=== PATIENT | female | born 1975 | race Caucasian/White ===

== ENCOUNTER 2019-11-13 07:37 | Outpatient (CLI) | payer BC, SELFPAY ==
--- NOTE | ~2019-11-13 | MM_ITS ---
EXAMINATION: MM screening [facility] BI w he HISTORY: Screening TECHNIQUE: Craniocaudal and mediolateral oblique 3-D tomosynthesis images were obtained and synthetic 2-D images were generated. CAD analysis was submitted and interpreted. COMPARISON: Comparison to multiple prior studies sequentially, with oldest reviewed study dated 08/25. BREAST PARENCHYMAL COMPOSITION: There are scattered areas of fibroglandular density. FINDINGS: There is no evidence of suspicious mass, calcification, or architectural distortion to sugg est malignancy in either breast. There has been no suspicious interval change. IMPRESSION: 1. No mammographic evidence of malignancy. 2. Recommend routine screening mammography in one year. BI-RADS Category 1: Negative Reviewed, dictated and finalized at location A.
== END 2019-11-13 07:38 | disposition home or self-care (01) ==
LOC: ANHIMG 07:39
PROVIDERS: PCP Internal Medicine; Visit Provider Nurse Practitioner
DX: Z12.31 Encounter for screening mammogram for malignant neoplasm of breast (principal)
CPT/HCPCS: 77063; 77067

== ENCOUNTER 2020-11-30 07:41 | Outpatient (CLI) | payer BC, SELFPAY ==
--- NOTE | ~2020-11-30 | MM_ITS ---
EXAMINATION: MM screening [facility] BI w he HISTORY: Screening mammogram TECHNIQUE: Craniocaudal and mediolateral oblique 3-D tomosynthesis images were obtained and synthetic 2-D images were generated. CAD analysis was submitted and interpreted. COMPARISON: 11/13/2019, 10/21/2018, 09/24/2017 BREAST PARENCHYMAL COMPOSITION: There are scattered areas of fibroglandular density. FINDINGS: There is no evidence of suspicious mass, calcification, or architectural distortion to sugg est malignancy in either breast. There has been no suspicious interval change. IMPRESSION: 1. No mammographic evidence of malignancy. 2. Recommend routine screening mammography in one year. BI-RADS Category 1: Negative Reviewed, dictated and finalized at location A.
== END 2020-11-30 07:42 | disposition home or self-care (01) ==
PROVIDERS: Visit Provider Nurse Practitioner
DX: Z12.31 Encounter for screening mammogram for malignant neoplasm of breast (principal)
CPT/HCPCS: 77063; 77067

== ENCOUNTER 2021-02-04 00:32 | Day surgery (SDC) | payer BC, SELFPAY ==
[2021-01-13 13:13] VITALS: BMI 22.0
[2021-02-04 09:55] VITALS: BP 107/64; PULSE 79; RESP 18; TEMP 36.6; O2SAT 100; BMI 21.7
[2021-02-04] MEDS: LACTATED RINGERS 1,000 ML 150 ML IV CONT (10:05)
--- NOTE | 2021-02-04 10:07 | P.PNAN_ITS ---
Anes - Initial Pre Proc Eval Procedure: Operation Date: 02/04/21 10:45 Proposed Procedures p Screening Colonoscopy - Mandeep Tong MD Date/Time: 02/04/21 10:07 Surgeon: Mandeep Tong MD Pre Op Diagnosis: neoplasm screening Patient Data Age: 45 Gender: F Height: 1.65 m Weight: 59.4 kg Last Vital Signs Temp 36.6 C 02/04/21 09:55 Pulse 79 02/04/21 09:55 Resp 18 02/04/21 09:55 BP 107/64 02/04/21 09:55 Pulse Ox 100 02/04/21 09:55 Allergies Allergy/AdvReac Type Severity Reaction Status Date / Time No Known Allergies Allergy Verified 02/04/21 09:52 Home Medications Medication Instructions Recorded Confirmed Type ergocalciferol (vitamin D2) 1 unit PO DAILY 01/13/21 01/13/21 History lactobacillus combination no.8 1 cell PO DAILY 01/13/21 01/13/21 History [Adult Probiotic] Patient hx anesthesia problems: post op nausea/vomiting Family hx anesthesia problems: none Results Review: All pre-operative results and documents have been reviewed as part of the pre-operative evaluation. [facility] Surgical History Surgical History (Updated 02/04/21 @ 10:08 by Alexis Smith MD) Hx of tonsillectomy S/P anal fissurectomy Social History Social History Smoking status: Never smoker Alcohol intake: current Alcohol use details: a few Substance use: never Substance use type: does not use Living arrangements: with family Spiritual care concerns: No Anes - Eval Final PreProcedure Day of Procedure 02/04/21 10:07 Patient weight: normal Heart: regular rate and rhythm Lungs: clear to auscultation Airway: Mallampati scale class 1 Neurological: alert and oriented Last oral intake: >/= 8 hours ASA classification: I Emergent: no Anesthetic plan: proceed Anesthesia type and monitoring: general GIVS and standard monitoring Results Review: All pre-operative results and documents have been reviewed as part of the pre-operative evaluation. Informed Consent: The patient's anesthetic plan and its attendant risks and benefits were discussed with the patient/family/POA. Questions were solicited and answers provided to the satisfaction of the patient/family/POA.
--- NOTE | 2021-02-04 10:26 | PM.HPGS ---
History of Present Illness History of Present Illness Consent: Risks, benefits, and alternatives have been discussed and questions answered. Patient agrees to proceed with procedure. Chief complaint: neoplasm screening Narrative: Jemima Walter is a 45 year old female here for first screening colonoscopy Review of Systems Constitutional: Constitutional: Denies headache(s) and Denies weakness Eyes: Eyes: Denies blurry vision ENT: Reports Normal hearing present, Denies headache(s) and Denies neck pain Cardiovascular: Cardiovascular: Denies chest pain and Denies dyspnea Respiratory: Respiratory: Denies dyspnea Gastrointestinal: Gastrointestinal: Reports no additional gastrointestinal complaints Genitourinary: Genitourinary: Denies dysuria Musculoskeletal: Musculoskeletal: Denies neck pain Integumentary/Breasts: Skin/Breast: Denies dry skin Neurologic: Reports Normal hearing present, Denies headache(s) and Denies weakness Psychiatric: Psychiatric: Denies anxiety Endocrine: Endocrine: Denies change in body appearance Hematologic/Lymphatic: Hematologic/Lymphatic: Denies easy bleeding Allergic/Immunologic: Allergic/Immunologic: Denies urticaria [facility] Past Medical History Medical History (Updated 02/04/21 @ 10:26 by Mandeep Tong MD) Colon cancer screening Surgical History Surgical History (Updated 02/04/21 @ 10:08 by Alexis Smith MD) Hx of tonsillectomy S/P anal fissurectomy Social History Social History Smoking status: Never smoker Alcohol intake: current Alcohol use details: a few Substance use: never Substance use type: does not use Living arrangements: with family Spiritual care concerns: No Meds Home Medications and Allergies Home Medications Medication Instructions Recorded Confirmed Type ergocalciferol (vitamin D2) 1 unit PO DAILY 01/13/21 01/13/21 History lactobacillus combination no.8 1 cell PO DAILY 01/13/21 01/13/21 History [Adult Probiotic] Allergies Allergy/AdvReac Type Severity Reaction Status Date / Time No Known Allergies Allergy Verified 02/04/21 09:52 Vital Signs Vital Signs - 24 hr 02/04/21 09:55 Temperature 98 F Pulse Rate 79 Respiratory Rate 18 Blood Pressure 107/64 Pulse Oximetry 100 Exam Const: General: comfortable and no acute distress HENMT: General nose exam: Normal nares present Eyes: General: appearance normal, both eyes and all related structures Neck: Neck: no JVD Resp: Auscultation: clear to auscultation bilaterally Cardio: Rate: regular rate Rhythm: regular rhythm GI: Inspection: non-distended GI Palp: Yes Soft to palpation Skin: General skin exam: normal color Neuro: General: gait normal Speech: normal speech Extrem: General: normal to inspection Psych: Mental Status: mental status grossly normal Assessment and Plan Assessment and plan (1) Colon cancer screening: Code(s): Z12.11 - Encounter for screening for malignant neoplasm of colon Status: Acute Assessment and Plan: colonoscopy
[2021-02-04 10:51] VITALS: BP 93/56; PULSE 78; RESP 17; O2SAT 100
[2021-02-04 11:01] VITALS: BP 103/65; PULSE 80; RESP 24; O2SAT 100
[2021-02-04 11:11] VITALS: BP 127/73; PULSE 87; RESP 34; O2SAT 100
== END 2021-02-04 11:22 | disposition home or self-care (01) ==
PROVIDERS: Visit Provider Internal Medicine Gastroenterology
PROC: 0DJD8ZZ Inspection of Lower Intestinal Tract, Via Natural or Artificial Opening Endoscopic (ICD-10-PCS; CPT 45378; principal; 2021-02-04 10:45)
DX: Z12.11 Encounter for screening for malignant neoplasm of colon (principal)
CPT/HCPCS: 45378; J2001; J2704; J7120

== ENCOUNTER 2021-04-14 11:26 | Emergency (ER) | payer BC, SELFPAY ==
--- NOTE | 2021-04-14 11:30 | ED.URI ---
HPI - URI/Sore Throat General Stated Complaint: Sore throat, ear pain. Time Seen by Provider: 04/14/21 11:30 Source: patient and RN notes reviewed History of Present Illness HPI Narrative: Patient is a 45-year-old female presents the urgent care with complaints of bilateral ear pain and sore throat. Patient states that her symptoms started last night. States that she has been taking Aleve with her last dose being last night. Reports of subjective fever as well as chills and sweats. Patient has had the COVID-vaccine and denies of any recent exposures. No other complaints. No acute distress noted. Patient read the plan of care. Some parts of this dictation were generated by voice recognition software and may contain typographical and/or grammatical inaccuracies. Related Data Home Medications Medication Instructions Recorded Confirmed ergocalciferol (vitamin D2) 1 unit PO DAILY 01/13/21 01/13/21 lactobacillus combination no.8 1 cell PO DAILY 01/13/21 01/13/21 [Adult Probiotic] Allergies Allergy/AdvReac Type Severity Reaction Status Date / Time No Known Allergies Allergy Verified 02/04/21 09:52 Review of Systems Review of Systems: CONSTITUTIONAL: Reports a fever EYES: Denies visual changes, redness, or discharge. ENT: Reports of sore throat and bilateral otalgia CARDIOVASCULAR: Denies chest pain, palpitations, or edema. RESPIRATORY: Denies cough or dyspnea. GASTROINTESTINAL: Denies abdominal pain, nausea, vomiting, or diarrhea. GENITOURINARY: Denies dysuria or hematuria. SKIN: Denies rash or itching. MUSCULOSKELETAL: Denies back pain, joint pain, or myalgia. NEUROLOGIC: Denies headache, numbness, or weakness. All other systems reviewed are negative, except as documented in HPI. [facility] Past Medical History Medical History (Updated 04/14/21 @ 12:03 by MELY Lim) Colon cancer screening Surgical History Surgical History (Updated 02/04/21 @ 10:08 by Alexis Smith MD) Hx of tonsillectomy S/P anal fissurectomy Social History Social History Smoking status: Never smoker Alcohol intake: current Alcohol use details: a few Substance use: never Substance use type: does not use Spiritual care concerns: No Comments At the time of my signature, I reviewed and agree with the nursing past medical, surgical, social, and family history. There is no relevant family history pertinent to the patient complaint. Exam Narrative: GENERAL: This is a well-nourished, well-developed patient, in no apparent distress. HEAD: normocephalic, atraumatic. EYES: PERRL. Sclera clear/white. Vision is grossly intact. EARS: External ears normal, auditory canals clear and without drainage, mild fluid noted by bilateral TMs without otitis. TMs normal without perforation. Hearing grossly intact. NOSE: External nose normal with no obvious nasal discharge, nares without redness, no rhinorrhea. THROAT: Mucous membranes moist. Mild erythema noted to posterior oropharynx with mild postnasal drainage exudate or ulceration NECK: Neck supple, non-tender without lymphadenopathy CARDIOVASCULAR: Regular rate and rhythm without murmurs, gallops, or rubs. RESPIRATORY: Clear to auscultation. Breath sounds equal bilaterally. No wheezes, rales, or rhonchi. SKIN: warm, intact with no suspicious lesions or rash, good texture and turgor. NEURO: awake, alert, and oriented to person, place and time. There were no obvious focal neurologic abnormalities. EXTREMITIES: No clubbing, cyanosis, or edema. Course Course Level of Care: Express Care Visit Vital Signs Vital signs: Vital Signs Temperature 101.2 F H 04/14/21 11:31 Pulse Rate 97 04/14/21 11:31 Respiratory Rate 16 04/14/21 11:31 Blood Pressure 126/87 04/14/21 11:31 Pulse Oximetry 100 04/14/21 11:31 Temperature 101.2 F H 04/14/21 11:31 Pulse Rate 97 04/14/21 11:31 Respiratory Rate 16
[2021-04-14 11:31] VITALS: BP 126/87; PULSE 97; RESP 16; TEMP 38.4; O2SAT 100
[2021-04-16 22:39] LABS: SARS-CoV-2 RNA PCR Positive
== END 2021-04-14 12:12 | disposition home or self-care (01) ==
PROVIDERS: Emergency Provider Nurse Practitioner Family
DX: U07.1 COVID-19 (principal)
CPT/HCPCS: 87081; 87804; 87880; 99213; C9803; G0463; U0003; U0005

== ENCOUNTER 2021-12-27 08:15 | Outpatient (CLI) | payer BC, SELFPAY ==
--- NOTE | ~2021-12-27 | MM_ITS ---
EXAMINATION: MM screening [facility] BI w he HISTORY: Screening mammogram TECHNIQUE: Craniocaudal and mediolateral oblique 3-D tomosynthesis images were obtained and synthetic 2-D images were generated. CAD analysis was submitted and interpreted. COMPARISON: 11/30/2020, 11/13/2019, 10/21/2018 BREAST PARENCHYMAL COMPOSITION: The breasts are heterogeneously dense, which may obscure small masses . FINDINGS: There is no suspicious mass, calcification, or architectural distortion to suggest malignan cy in either breast. There has been no suspicious interval change. IMPRESSION: 1. No mammographic evidence of malignancy. 2. Recommend routine screening mammography in one year. BI-RADS Category 1: Negative Reviewed, dictated and finalized at location A.
== END 2021-12-27 08:16 | disposition home or self-care (01) ==
PROVIDERS: PCP Family Medicine; Visit Provider Nurse Practitioner
DX: Z12.31 Encounter for screening mammogram for malignant neoplasm of breast (principal)
CPT/HCPCS: 77063; 77067

== ENCOUNTER → 2022-05-23 12:43 | Outpatient (CLI) | payer BC, SELFPAY ==
--- NOTE | ~2022-05-23 | MR_ITS ---
EXAMINATION: MR cervical spine wo con DATE: 05/23/2022 13:11 INDICATION: Cervical degenerative disc disease. Neck pain radiating down the left arm. TECHNIQUE: Magnetic resonance imaging (MRI) of the cervical spine was performed without intravenous c ontrast. Sequences included sagittal T2-weighted FSE, sagittal T2-weighted FS FSE, sagittal T1-weight ed FSE, axial MERGE, and axial T2-weighted FSE. COMPARISON: None FINDINGS: There is kyphosis of cervical spine. Vertebral body heights are normal. There is mildly dec reased disc height at C4-C5, moderately decreased disc height at C5-C6, and mildly decreased disc hei ght at C6-C7. The spinal cord signal intensity is normal. The following disc levels are specifically discussed: C2-C3: The disc does not extend beyond the endplate margin. There is no uncovertebral joint osteoarth ritis. There is mild bilateral facet joint osteoarthritis. There is no neural foraminal stenosis. The re is no central canal stenosis. C3-C4: There is a central extrusion. There is mild left uncovertebral joint osteoarthritis. There is mild bilateral facet joint osteoarthritis. There is no neural foraminal stenosis. There is mild centr al canal stenosis. C4-C5: The disc is bulging. There is moderate bilateral uncovertebral joint osteoarthritis. There is mild bilateral facet joint osteoarthritis. There is mild bilateral neural foraminal stenosis. There i s mild central canal stenosis. C5-C6: The disc is bulging. There is moderate right and severe left uncovertebral joint osteoarthriti s. There is mild bilateral facet joint osteoarthritis. There is mild left neural foraminal stenosis. There is mild central canal stenosis. C6-C7: The disc is bulging with superimposed extrusion in left lateral recess. There is mild bilatera l uncovertebral joint osteoarthritis. There is mild bilateral facet joint osteoarthritis. There is mi ld right and moderate left neural foraminal stenosis. There is mild central canal stenosis. There is severe stenosis of left lateral recess. C7-T1: The disc does not extend beyond the endplate margin. There is mild bilateral uncovertebral jeff nt osteoarthritis. There is no facet joint osteoarthritis. There is no neural foraminal stenosis. The re is no central canal stenosis. IMPRESSION: 1. Moderate cervical spondylosis. Of note, an extrusion at C6-C7 causes severe stenosis of left later al recess with mass effect on left C7 nerve root. Reviewed, dictated and finalized at location A. E PLANT OPERATOR IMPRESSION: 1. Moderate cervical spondylosis. Of note, an extrusion at C6-C7 causes severe stenosis of left lateral recess with mass effect on left C7 nerve root.
== END ==
PROVIDERS: PCP Family Medicine; Visit Provider Physician Assistant
DX: M50.30 Other cervical disc degeneration, unspecified cervical region (principal); M47.892 Other spondylosis, cervical region; M50.223 Other cervical disc displacement at C6-C7 level
CPT/HCPCS: 72141

== ENCOUNTER 2022-12-28 07:13 | Outpatient (CLI) | payer BC, SELFPAY ==
--- NOTE | ~2022-12-28 | MM_ITS ---
EXAMINATION: MM screening [facility] w he HISTORY: Screening TECHNIQUE: Craniocaudal and mediolateral oblique 3-D tomosynthesis images were obtained and synthetic 2-D images were generated. CAD analysis was submitted and interpreted. COMPARISON: Comparison to multiple prior studies sequentially, with oldest reviewed study dated 08/25. BREAST PARENCHYMAL COMPOSITION: Breast composed of scattered areas of fibroglandular density FINDINGS: There is no evidence of suspicious mass, calcification, or architectural distortion to sugg est malignancy in either breast. There has been no suspicious interval change. IMPRESSION: 1. No mammographic evidence of malignancy. 2. Recommend routine screening mammography in one year. BI-RADS Category 1: Negative Reviewed, dictated and finalized at location A.
== END 2022-12-28 07:14 | disposition home or self-care (01) ==
PROVIDERS: PCP Family Medicine; Visit Provider Nurse Practitioner
DX: Z12.31 Encounter for screening mammogram for malignant neoplasm of breast (principal)
CPT/HCPCS: 77063; 77067

== ENCOUNTER 2023-03-22 10:51 | Outpatient (CLI) | payer BC, SELFPAY ==
--- NOTE | ~2023-03-22 | MMUS_ITS ---
EXAMINATION: MM diagnostic [facility] LT w he, US breast LT limited HISTORY: Palpable left breast abnormality for 5-6 weeks in the lower inner quadrant TECHNIQUE: Additional 3-D tomosynthesis images of the left breast were performed and synthetic 2-D im ages were generated. CAD analysis was submitted and interpreted. High resolution Limited left breast ultrasound was performed. COMPARISON: Comparison to multiple prior studies sequentially, with oldest reviewed study dated 09/24. BREAST PARENCHYMAL COMPOSITION: Breast composed of scattered areas of fibroglandular density FINDINGS: MAMMOGRAPHIC FINDINGS: The left breast is stable. No new masses, calcifications or architectural distortion in the left [address] to suggest malignancy. ULTRASOUND: Limited left breast ultrasound: At 7:00, 2 cm from the nipple, there is a 4 mm cyst. At 12:00, 3 cm f rom the nipple there is a 6 mm cyst. No suspicious solid masses. IMPRESSION: 1. No evidence for malignancy in the left breast. Benign findings. 2. Routine yearly screening mammogram and regular clinical breast examination are recommended. BI-RADS Category 2: Benign finding(s). Reviewed, dictated and finalized at location A. BOARD INSTRUCTOR IMPRESSION: 1. No evidence for malignancy in the left breast. Benign findings. 2. Routine yearly screening mammogram and regular clinical breast examination a re recommended. BI-RADS Category 2: Benign finding(s).
== END 2023-03-22 10:52 | disposition home or self-care (01) ==
PROVIDERS: PCP Family Medicine; Visit Provider Nurse Practitioner
DX: N64.59 Other signs and symptoms in breast (principal)
CPT/HCPCS: 76642; 77061; 77065; G0279

== ENCOUNTER → 2023-06-07 10:15 | Outpatient (CLI) | payer BC, SELFPAY ==
--- NOTE | ~2023-06-07 | US_ITS ---
Pelvic ultrasound. Clinical History: Abnormal uterine bleeding Technique: Realtime transabdominal and transvaginal scanning of the pelvis was performed. Color flow Doppler and Doppler spectral analysis were performed. Findings: The uterus is anteverted. The endometrial stripe has a thickness of 11 mm. Intramural or p ossibly partially submucosal fibroid towards the fundus measures 2.2 cm in diameter. The right ovary measures 3.3 x 2.2 x 2.3 cm. No significant right ovarian or adnexal mass is seen. The left ovary measures 2.6 x 1.5 x 2.7 cm. No significant left ovarian or adnexal mass is seen. There is no evidence of free fluid in the cul de sac. Impression: 2.2 cm intramural/submucosal fibroid. Reviewed, dictated and finalized at [facility]. RGLASS ROVING WINDER Impression: 2.2 cm intramural/submucosal fibroid.
== END ==
PROVIDERS: PCP Advanced Practice Midwife; Visit Provider Advanced Practice Midwife
DX: N93.8 Other specified abnormal uterine and vaginal bleeding (principal); N92.0 Excessive and frequent menstruation with regular cycle; D25.9 Leiomyoma of uterus, unspecified
CPT/HCPCS: 76856

== ENCOUNTER 2023-08-06 03:44 | Day surgery (SDC) | payer BC, SELFPAY ==
[2023-07-27 07:42] VITALS: BMI 22.8
--- NOTE | 2023-07-27 07:56 | SUR.PREOP ---
Report to the Outpatient Waiting Room, entrance under the green pavilion located off [facility], at time 0600 on date 08/06/23. Planned Procedure Time: 0730. Time changes happen often and if your time is changed the preop area will call you the afternoon before. - You and your visitor will be asked to self-screen and do not enter if you have any COVID symptoms. - A mask is optional within the hospital at this time. Patients may have clear liquids (water, carbonated beverages, clear teas, apple juice) until 3 hours prior to surgery with a maximum of 20 ounces. - No food from midnight until time of surgery - Infants may have breast milk until 4 hours before surgery, formula 6 hours prior to surgery. - Children will be allowed to drink immediately following surgery. If applicable, please bring a bottle or sippy cup to assist with drinking. Juice, water, soda, and popsicles are readily available. For infants on formula, please bring formula the day of surgery. Pacifiers are allowed. Take the following medications with a SIP of water the morning of surgery: hold morning meds DO NOT STOP ANY OF YOUR OTHER PRESCRIPTION MEDICATIONS PRIOR TO SURGERY ?EXCEPT THE FOLLOWING Medications to discontinue per physician ____hold supplements and vitamins for three days prior Date to take last dose Please no make-up, nail yakut, hairspray, perfume, deodorant, or body powder the day of surgery. No jewelry (including any body piercings) or valuables the day of surgery, leave them at home. Please take a shower or bath the night before, or the morning of, surgery with an antibacterial soap. Wear comfortable, loose fitting clothing. Children are encouraged to wear pajamas. - Jewelry must be removed prior to entering the operating room. Rings and piercings that are not removed may be cut off. - The hospital will not accept responsibility for valuables. - Please leave all valuables, including medications, at home the day of surgery. If you are going home after surgery, a licensed highway truck driver must drive you home. - NO public transportation without another adult if you receive anesthesia. - We recommend that an adult stay with you for 24 hours following discharge. - We also recommend that you do not drive, make important decision, drink alcoholic beverages, or take any drugs that were not prescribed by your health care provider for at least 24 hours after your discharge time. For Pediatric surgeries, we recommend two adults accompany the child home. Follow any additional instructions given to you from your surgeon. If you or anyone in your household have experienced Covid symptoms in the past week, please notify your surgeon or the nurse liaison at the phone number below for possible testing. Telephone instructions given to __patient__and asked if any additional questions and then verbalized understanding. Patient advised to call surgeon office or pre surgery nurse liaison [phone] if any additional questions.
--- NOTE | 2023-08-06 07:12 | WPDHPUPDATE1 ---
History and Physical Update Update Date/Time: 08/06/23 07:12 History and Physical has been reviewed, including an updated exam of the patient. There are NO changes in the patient's condition. Risks, benefits, and alternatives have been discussed and questions answered. Patient agrees to proceed with procedure.
--- NOTE | 2023-08-06 07:12 | PM.HPGS ---
History of Present Illness History of Present Illness Consent: Risks, benefits, and alternatives have been discussed and questions answered. Patient agrees to proceed with procedure. Chief complaint: Menorrhagia, Fibroids Narrative: Jemima Walter is a 48 year old female with heavy and prolonged cycles over the past several months. Ultrasound reveals fibroids. It was recommended to undergo D&C hysteroscopy. Risks of infection, bleeding, perforation, and fluid imbalance are reviewed. Possible pathology was discussed including polyps and fibroids that be attempted to be removed if found. Patient voices understanding and agrees to proceed. Review of Systems Review of Systems: not repeated day of surgery; patient states no changes in status PMFSH Past Medical History Medical History (Updated 08/06/23 @ 07:15 by Brielle Sanchez MD) (normal spontaneous vaginal delivery) x2 Surgical History Surgical History (Updated 08/06/23 @ 07:14 by Brielle Sanchez MD) History of loop electrical excision procedure (LEEP) Hx of tonsillectomy S/P anal fissurectomy Family History Family History Grandparent Heart problem Mother Hypothyroid Social History Social History Smoking status: Never smoker Smoking end date: 04/09/01 Alcohol intake: current Drinks per week: 2 Substance use: never Substance use type: does not use Living arrangements: with family Spiritual care concerns: No Meds Home Medications and Allergies Home Medications Medication Instructions Recorded Confirmed Type ergocalciferol (vitamin D2) 1,250 1 unit PO DAILY 01/13/21 07/27/23 History mcg (50,000 unit) capsule ferrous sulfate 325 mg (65 mg 325 mg PO DAILY 07/27/23 07/27/23 History iron) tablet (Iron (ferrous sulfate)) Allergies Allergy/AdvReac Type Severity Reaction Status Date / Time No Known Allergies Allergy Verified 05/02/22 08:25 Assessment and Plan Assessment and plan (1) Menorrhagia: Code(s): N92.0 - Excessive and frequent menstruation with regular cycle Status: Acute Assessment and Plan: plan to proceed with D&C hysteroscopy
[2023-08-06 07:37] VITALS: BP 106/51; PULSE 70; RESP 18; TEMP 36.2; O2SAT 100
--- NOTE | 2023-08-06 07:53 | WPDANESEPPF ---
Anes - Initial Pre Proc Eval Procedure: Operation Date: 08/06/23 09:30 Proposed Procedures p Hysteroscopy Dilation and Curettage with Possible Myomectomy - Brielle Sanchez MD Date/Time: 08/06/23 07:53 Surgeon: Brielle Sanchez MD Pre Op Diagnosis: Menorrhagia, Fibroids Patient Data Age: 48 Gender: F Height: 1.65 m Weight: 65 kg Last Vital Signs Temp 36.2 C L 08/06/23 07:37 Pulse 70 08/06/23 07:37 Resp 18 08/06/23 07:37 BP 106/51 L 08/06/23 07:37 Pulse Ox 100 08/06/23 07:37 O2 Del Method Room Air 08/06/23 07:37 Allergies Allergy/AdvReac Type Severity Reaction Status Date / Time No Known Allergies Allergy Verified 05/02/22 08:25 Home Medications Medication Instructions Recorded Confirmed Type ergocalciferol (vitamin D2) 1,250 1 unit PO DAILY 01/13/21 07/27/23 History mcg (50,000 unit) capsule ferrous sulfate 325 mg (65 mg 325 mg PO DAILY 07/27/23 07/27/23 History iron) tablet (Iron (ferrous sulfate)) Patient hx anesthesia problems: none Family hx anesthesia problems: none Results Review: All pre-operative results and documents have been reviewed as part of the pre-operative evaluation. [facility] Past Medical History Medical History (normal spontaneous vaginal delivery) x2 Surgical History Surgical History History of loop electrical excision procedure (LEEP) Hx of tonsillectomy S/P anal fissurectomy Family History Family History Grandparent Heart problem Mother Hypothyroid Social History Social History (Updated 08/06/23 @ 07:54 by Alexis Smith MD) Smoking status: Former smoker Smoking end date: 04/09/01 Alcohol intake: current Drinks per week: 2 Substance use: never Substance use type: does not use Living arrangements: with family Spiritual care concerns: No Anes - Eval Final PreProcedure Day of Procedure 08/06/23 07:53 Patient weight: normal Heart: regular rate and rhythm Lungs: clear to auscultation Airway: Mallampati scale class II Neurological: alert and oriented Last oral intake: >/= 8 hours ASA classification: II Emergent: no Anesthetic plan: proceed Anesthesia type and monitoring: general GIVS and standard monitoring Results Review: All pre-operative results and documents have been reviewed as part of the pre-operative evaluation. Informed Consent: The patient's anesthetic plan and its attendant risks and benefits were discussed with the patient/family/POA. Questions were solicited and answers provided to the satisfaction of the patient/family/POA.
[2023-08-06] MEDS: LACTATED RINGERS 1,000 ML 30 ML IV CONT ×2 (08:00→11:09)
[2023-08-06] MEDS: ACETAMINOPHEN 500 MG TABLET 1000 MG PO (08:02)
[2023-08-06] MEDS: KETOROLAC 30 MG/ML VIAL (*BKC) IM (09:56)
--- NOTE | 2023-08-06 10:16 | P.OP_ITS ---
Procedure Note - Detailed Date of Procedure 08/06/23 Pre-op Diagnosis Menorrhagia, Fibroids Post-op Diagnosis Same Procedure Performed hysteroscopic myomectomy Surgeon Brielle Sanchez MD Anesthesia MAC Findings uterus sounds to 10cm large fibroid on the posterior wall 2nd large fibroid anterior lateral on right Description of Procedure The patient is taken to the operating room and placed under anesthesia in the dorsal lithotomy position. She was prepped and draped in the usual sterile fashion. [place] speculum was placed in the vagina and the cervix grasped on the anterior lip with a tenaculum. The uterus is sounded to 10cm. The cervix is serially dilated to a 7 Hegar. The large Aveeta hysteroscope was placed. With the above-stated findings the Wave Aveeta resection device is placed. Under direct visualization both fibroids are shaved until they were flat with the endometrium. With observation they both had additional material pop into the endometrium. The fibroids were continued to be shaved until no further material popped into the endometrium. After [id number] of stable endometrium the hysteroscope was removed. The sharp curette was used to curette the endometrium until a good uterine cry was noted in all areas. All instruments are removed. Sponge, needle, and instrument counts are correct per the OR staff. Patient was awakened from anesthesia and taken to recovery in stable condition. Estimated Blood Loss 5 Drains No Packing No Pathology Yes ( Endometrial shavings and curettings) Complications No immediate complications Condition Stable Disposition PACU
[2023-08-06 10:17] VITALS: BP 92/67; PULSE 51; RESP 16; O2SAT 100
[2023-08-06] MEDS: fentaNYL CITRATE INJ (*CRX) 100 MCG/2 ML VIAL 25 MCG IV PUSH ×2 (10:29→10:33)
[2023-08-06 10:30] VITALS: BP 115/74; PULSE 52; RESP 16; O2SAT 97
[2023-08-06] MEDS: ONDANSETRON INJ 4 MG/2 ML VIAL IV PUSH (10:58)
[2023-08-06 11:00] VITALS: BP 109/71; PULSE 73; RESP 16
[2023-08-06] MEDS: SCOPOLAMINE 1 MG PATCH 1 PATCH TRANSDERM (11:23)
[2023-08-06] MEDS: diphenhydrAMINE HCl INJ 50 MG/ML VIAL 25 MG IV PUSH (11:24)
[2023-08-06 11:30] VITALS: BP 125/80; PULSE 59; RESP 16
== END 2023-08-06 12:10 | disposition home or self-care (01) ==
PROVIDERS: PCP Family Medicine; Visit Provider Obstetrics & Gynecology Gynecology
PROC: 0U5B8ZZ Destruction of Endometrium, Via Natural or Artificial Opening Endoscopic (ICD-10-PCS; CPT 58563; principal; 2023-08-06 09:30)
DX: N92.0 Excessive and frequent menstruation with regular cycle (principal); D25.9 Leiomyoma of uterus, unspecified; N85.8 Other specified noninflammatory disorders of uterus; Z98.890 Other specified postprocedural states; Z87.891 Personal history of nicotine dependence; Z82.49 Family history of ischemic heart disease and other diseases of the circulatory system
CPT/HCPCS: 58561; 88305; A9270; J1200; J1885; J2250; J2405; J2704; J3010; J7120

== ENCOUNTER 2023-09-11 16:17 | Emergency (ER) | payer BC, SELFPAY ==
--- NOTE | ~2023-09-11 | CT_ITS ---
EXAMINATION: CT abdomen pelvis w con DATE: 09/11/2023 18:46 INDICATION: heavy vaginal bleeding/fibroids TECHNIQUE: Computed tomography (CT) of the abdomen and pelvis was performed with 100 mL Omnipaque-350 intravenous contrast. Automated exposure control and iterative reconstruction technique were employe d. The dose-length product was 323.95 mGy-cm. COMPARISON: Ultrasound pelvis 06/07/2023. FINDINGS: Lower thorax: Unremarkable Liver: Normal. Biliary/Gallbladder: Gallbladder is normal. No bile duct dilation. Pancreas: No mass or duct dilation. Spleen: Normal. Adrenals:No mass. Kidneys: No suspicious mass, obstructing stone, or hydronephrosis. GI tract: No small or large bowel dilation. Normal appendix. Mesentery/Peritoneum: No ascites, mass, or free air. Retroperitoneum: No mass. Pelvis: 2.4 cm submucosal fibroid at the uterine body/fundus junction, to the right of midline. 1.5 c m intramural fibroid in the uterine body to the left of midline. Normal urinary bladder. Normal bilat eral ovaries. Soft Tissues: Small uncomplicated fat-containing umbilical hernia. Bones: No acute osseous finding. IMPRESSION: 2.4 cm submucosal fibroid which could be a source of abnormal uterine bleeding. Otherwise unremarkable CT abdomen and pelvis findings Reviewed, dictated and finalized at location K.
[2023-09-11 16:24] VITALS: BP 122/75; PULSE 70; RESP 16; TEMP 36.7; O2SAT 100
--- NOTE | 2023-09-11 17:10 | ED.FEMALEGU ---
HPI - Female Genitourinary General Chief complaint: Vaginal Bleeding <Bishnu Manuel APRN - Last Filed: 09/12/23 08:02> Stated complaint: vaginal bleeding <Bishnu Manuel APRN - Last Filed: 09/12/23 08:02> Time Seen by Provider: 09/11/23 17:09 <Bishnu Manuel APRN - Last Filed: 09/12/23 08:02> Source: patient <Bishnu Manuel APRN - Last Filed: 09/12/23 08:02> Mode of arrival: ambulatory <Bishnu Manuel APRN - Last Filed: 09/12/23 08:02> Limitations: no limitations <Bishnu Manuel APRN - Last Filed: 09/12/23 08:02> History of Present Illness HPI Narrative: Héctor is a 40-year-old female patient presenting to the ER today with complaints of heavy vaginal bleeding. She reports that symptoms actually started slightly on Sunday of last weekend however heavy bleeding started on Sunday. She states she was in [place] on her honeymoon when this occurred. She states she went through tampons approximately every 1-3 hours. States that these were super tampon/and heavy pads. She contacted her therapeutic riding instructor Dr Sanchez and doctor told her to come into the emergency room to have her evaluated states that she just had a hysteroscopy on August 05 and two uterine fibroids were removed <Bishnu Manuel APRN - Last Filed: 09/12/23 08:02> Related Data Home medications: Home Medications Medication Instructions Recorded Confirmed ergocalciferol (vitamin D2) 1,250 1 unit PO DAILY 01/13/21 08/06/23 mcg (50,000 unit) capsule ferrous sulfate 325 mg (65 mg 325 mg PO DAILY 07/27/23 08/06/23 iron) tablet (Iron (ferrous sulfate)) <Bishnu Manuel APRN - Last Filed: 09/12/23 08:02> Allergies/Adverse reactions: Allergies Allergy/AdvReac Type Severity Reaction Status Date / Time No Known Allergies Allergy Verified 09/11/23 16:28 <Bishnu Manuel APRN - Last Filed: 09/12/23 08:02> Review of Systems Review of Systems: Pertinent positives per HPI. Patient denies any fever, chills, rash, headache, visual changes, dizziness, cough, runny nose, sore throat, shortness of breath, chest pain, palpitations, nausea, vomiting, diarrhea, constipation, abdominal pain, or any urinary issues. <Bishnu Manuel APRN - Last Filed: 09/12/23 08:02> PMFSH Past Medical History Medical History: Medical History (normal spontaneous vaginal delivery) x2 <Bishnu Manuel APRN - Last Filed: 09/12/23 08:02> Surgical History Surgical History: Surgical History History of loop electrical excision procedure (LEEP) Hx of tonsillectomy S/P anal fissurectomy <Bishnu Manuel APRN - Last Filed: 09/12/23 08:02> Family History Family History: Family History Grandparent Heart problem Mother Hypothyroid <Bishnu Manuel APRN - Last Filed: 09/12/23 08:02> Social History Social History: Social History Smoking status: Former smoker Smoking end date: 04/09/01 Alcohol intake: current Drinks per week: 2 Substance use: never Substance use type: does not use Living arrangements: with family Spiritual care concerns: No <NANY Tobar Last Filed: 09/12/23 08:02> Comments At the time of my signature, I reviewed and agree with the nursing past medical, surgical, social, and family history. There is no relevant family history pertinent to the patient complaint. <Bishnu Manuel APRN - Last Filed: 09/12/23 08:02> Exam Narrative: General: Well-developed, well nourished, in no apparent distress Head: Normocephalic, atraumatic. Cardio: Regular rate and rhythm, s1 and s2 normal, no murmur appreciated. Resp: Clear to auscultation bilaterally, no rho
[2023-09-11 17:27] LABS: Basophils Absolute Auto 0.1 K/mm3 (0.0-0.1); Basophils Percent Auto 0.6 % (0.2-1.2); Eosinophils Absolute Auto 0.1 K/mm3 (0-0.3); Eosinophils Percent Auto 0.6 % (0-4.4); Hematocrit 38.1 % (37.0-47.0); Hemoglobin 12.4 g/dL (12.0-15.0); Immature Granulocyte Absolute 0.02 K/mm3 (0.00-0.031); Immature Granulocyte Percent A 0.2 % (0-0.5); Lymphocytes Absolute Auto 1.63 K/mm3 (0.9-3.2); Mean Corpuscular HGB Conc 32.5 g/dl (32-36); Mean Corpuscular Hemoglobin 28.9 pg (26-34); Mean Corpuscular Volume 88.8 fl (80-100); Mean Platelet Volume 9.4 fl (7.4-10.4); Monocytes Absolute Auto 0.5 K/mm3 (0.1-0.6); Monocytes Percent Auto 6.4 % (2.6-8.5); Neutrophils Absolute Auto 5.9 K/mm3 (1.3-6.7); Neutrophils Percent Auto 72.2 % (45.5-73.1); Platelet Count Result 289 k/mm3 (150-375); Red Blood Count 4.29 M/mm3 (4.2-5.4); Red Cell Distribution Width 13.7 % (11.5-14.5); White Blood Count 8.2 K/mm3 (4.5-10.0)
[2023-09-11 17:28] LABS: Appearance Urine Clear (Clear); Bilirubin Urine Negative (Negative); Blood Urine Negative (Negative); Color Urine Yellow (Yellow); Glucose Urine UA Negative (Negative); Ketones Urine Negative (Negative); Leukocyte Esterase Ur Negative LEU/UL (Negative); Nitrate Urine Negative (Negative); Protein Urine Negative (Negative); Specific Grav Ur 1.009 (1.001-1.035); Urobilinogen Urine 0.2 mg/dL (<2.0); pH Urine 6.5 (5.0-9.0)
[2023-09-11 17:31] LABS: Add Urine Microscopic? NO
[2023-09-11 17:38] LABS: INR 0.9; Prothrombin Time 12.6 Seconds (11.1-14.7)
[2023-09-11 17:39] LABS: Partial Thromboplastin Time 27.2 Seconds (22.3-36.8)
[2023-09-11 17:41] LABS: Alanine Aminotransferase 22 U/L (6-35); Albumin Level 4.4 g/dL (3.5-5.1); Alkaline Phosphatase 64 U/L (38-126); Anion Gap 8 mmol/L (4-12); Aspartate Amino Transferase 29 U/L (14-36); Bilirubin,Total 0.6 mg/dL (0.2-1.3); Blood Urea Nitrogen 13 mg/dL (7-17); Calcium 9.1 mg/dL (8.4-10.2); Carbon Dioxide 24 mmol/L (22-30); Chloride 107 mmol/L (98-107); Estimated CRCL calculation 67 ml/min; Estimated Glomerular Filt Rate > 60; Glucose 93 mg/dL (65-110); Sodium 139 mmol/L (137-145)
--- NOTE | 2023-09-11 19:09 | PC.NURSE ---
bssr received from ROBERTO Figueroa at this time. Pt resting comfortably in bed. call light within reach.
[2023-09-11 21:28] VITALS: BP 132/74; PULSE 72; RESP 17; O2SAT 100
== END 2023-09-11 21:55 | disposition home or self-care (01) ==
PROVIDERS: Emergency Provider Nurse Practitioner Family; PCP Family Medicine
DX: N92.0 Excessive and frequent menstruation with regular cycle (principal); D25.9 Leiomyoma of uterus, unspecified; Z87.891 Personal history of nicotine dependence
CPT/HCPCS: 36415; 74177; 80053; 81003; 81025; 85025; 85610; 85730; 99284; Q9967

== ENCOUNTER 2024-01-25 07:16 | Outpatient (CLI) | payer BC, SELFPAY ==
--- NOTE | ~2024-01-25 | MM_ITS ---
EXAMINATION: MM screening [place] BI w he HISTORY: Screening TECHNIQUE: Craniocaudal and mediolateral oblique 3-D tomosynthesis images were obtained and synthetic 2-D images were generated. CAD analysis was submitted and interpreted. COMPARISON: Comparison to multiple prior studies sequentially, with oldest reviewed study dated 10/21. BREAST PARENCHYMAL COMPOSITION: Dense: The breasts are heterogeneously dense, which may obscure small masses FINDINGS: There is no evidence of suspicious mass, calcification, or architectural distortion to sugg est malignancy in either breast. There has been no suspicious interval change. IMPRESSION: 1. No mammographic evidence of malignancy. 2. Recommend routine screening mammography in one year. BI-RADS Category 1: Negative Reviewed, dictated and finalized at location B.
== END 2024-01-25 07:17 | disposition home or self-care (01) ==
LOC: ANHIMG 07:20
PROVIDERS: PCP Family Medicine; Visit Provider Nurse Practitioner Women's Health
DX: Z12.31 Encounter for screening mammogram for malignant neoplasm of breast (principal)
CPT/HCPCS: 77063; 77067

== ENCOUNTER 2024-02-18 00:21 | Day surgery (SDC) | payer BC, SELFPAY ==
[2024-02-14 12:40] VITALS: BMI 23.1
--- NOTE | 2024-02-14 12:41 | PC.NURSE ---
Report to the Outpatient Waiting Room, entrance under the green pavilion located off [facility], at time _0830_ on date _[id number]_. Planned Procedure Time: _1030_.? Time changes happen often and if your time is changed the preop area will call you the afternoon before. - You and your visitor will be asked to self-screen and do not enter if you have any COVID symptoms. Please call surgeon if you need to reschedule. - A mask is optional within the hospital at this time. Patients may have clear liquids (water, carbonated beverages, clear teas, apple juice) until 3 hours prior to surgery with a maximum of 20 ounces. - No food from midnight until time of surgery and no smoking Take only the following medications with a SIP of water on the morning of surgery: ____None DO NOT STOP ANY OF YOUR OTHER PRESCRIPTION MEDICATIONS PRIOR TO SURGERY EXCEPT THE FOLLOWING Medications to discontinue per physician ___None____ Date to take last dose Please no make-up, nail bhutanese, hairspray, perfume, deodorant, or body powder the day of surgery.? No jewelry (including any body piercings) or valuables the day of surgery, leave them at home.? Please take a shower or bath the night before, or the morning of, surgery with an antibacterial soap.? Wear comfortable, loose fitting clothing.? - Jewelry must be removed prior to entering the operating room.? Rings and piercings that are not removed may be cut off. - The hospital will not accept responsibility for valuables.? - Please leave all valuables, including medications, at home the day of surgery. If you are going home after surgery, a licensed mixer driver must drive you home.? - NO public transportation without another adult if you receive anesthesia. - We recommend that an adult stay with you for 24 hours following discharge. - We also recommend that you do not drive, make important decision, drink alcoholic beverages, or take any drugs that were not prescribed by your health care provider for at least 24 hours after your discharge time. Follow any additional instructions given to you from your surgeon. Telephone instructions given to __Jemima__and asked if any additional questions and then verbalized understanding. Patient advised to call surgeon office or pre surgery nurse liaison [phone] if any additional questions.
--- NOTE | 2024-02-17 09:30 | P.PNAN_ITS ---
Anes - Initial Pre Proc Eval Procedure: Operation Date: 02/18/24 10:30 Proposed Procedures p Hysteroscopy with Clarissa Endometrial Ablation, Possible Myomectomy - Brielle Sanchez MD Date/Time: 02/17/24 09:30 Surgeon: Brielle Sanchez MD Pre Op Diagnosis: Menorrhagia, Fibroid Patient Data Age: 48 Gender: F Height: 1.65 m Weight: 63.2 kg Allergies Allergy/AdvReac Type Severity Reaction Status Date / Time No Known Allergies Allergy Verified 02/18/24 08:48 Home Medications Medication Instructions Recorded Confirmed Type ferrous sulfate 325 mg (65 mg 325 mg PO DAILY 07/27/23 02/14/24 History iron) tablet (Iron (ferrous sulfate)) Patient hx anesthesia problems: post op nausea/vomiting Family hx anesthesia problems: none Results Review: All pre-operative results and documents have been reviewed as part of the pre- operative evaluation. PMFSH Past Medical History Medical History (Updated 02/18/24 @ 07:53 by Brielle Sanchez MD) (normal spontaneous vaginal delivery) x2 Surgical History Surgical History (Updated 02/18/24 @ 07:52 by Brielle Sanchez MD) History of loop electrical excision procedure (LEEP) Hx of tonsillectomy S/P anal fissurectomy Status post hysteroscopic myomectomy 07/31 Family History Family History Grandparent Heart problem Mother Hypothyroid Social History Social History Years smoked: 7 Smoking status: Former smoker Tobacco type: cigarettes Smoking end date: 02/14/04 Alcohol intake: current Drinks per week: 2 Substance use: never Substance use type: does not use Living arrangements: with family Spiritual care concerns: No Anes - Eval Final PreProcedure Day of Procedure 02/17/24 09:30 Patient weight: normal Heart: regular rate and rhythm Lungs: clear to auscultation and normal air movement Airway: Mallampati scale class II Neurological: alert and oriented Last oral intake: >/= 8 hours (9pm last night) ASA classification: II Emergent: no Anesthetic plan: proceed Anesthesia type and monitoring: general GIVS and standard monitoring Results Review: All pre-operative results and documents have been reviewed as part of the pre- operative evaluation. Informed Consent: The patient's anesthetic plan and its attendant risks and benefits were discussed with the patient/family/POA. Questions were solicited and answers provided to the satisfaction of the patient/family/POA.
--- NOTE | 2024-02-18 07:49 | WPDHPUPDATE1 ---
History and Physical Update Update Date/Time: 02/18/24 07:49 History and Physical has been reviewed, including an updated exam of the patient. There are NO changes in the patient's condition. Risks, benefits, and alternatives have been discussed and questions answered. Patient agrees to proceed with procedure.
--- NOTE | 2024-02-18 07:49 | PM.HPGS ---
History of Present Illness History of Present Illness Consent: Risks, benefits, and alternatives have been discussed and questions answered. Patient agrees to proceed with procedure. Chief complaint: Menorrhagia, Fibroid Narrative: Jemima Platt is a 48 year old female with menorrhagia and known fibroids. Patient underwent hysteroscopic myomectomy in July of 2023. She utilized to different brands of oral contraceptives without success. The plan was to change to MyF[place] but on day 5 the patient began having very heavy bleeding decided to proceed with other options. Patient prefers to have an endometrial ablation. Recent pelvic ultrasound shows a submucosal fibroid. The plan is to proceed with hysteroscopy and possible resection of fibroid followed by a Clarissa ablation. Risks of infection, bleeding, perforation, and fluid imbalance are reviewed. Success the ablation was also discussed. Patient voices understanding and agrees to proceed. Review of Systems Review of Systems: not repeated day of surgery; patient states no changes in status PMFSH Past Medical History Medical History (Updated 02/18/24 @ 07:53 by Brielle Sanchez MD) (normal spontaneous vaginal delivery) x2 Surgical History Surgical History (Updated 02/18/24 @ 07:52 by Brielle Sanchez MD) History of loop electrical excision procedure (LEEP) Hx of tonsillectomy S/P anal fissurectomy Status post hysteroscopic myomectomy 07/31 Family History Family History Grandparent Heart problem Mother Hypothyroid Social History Social History Years smoked: 7 Smoking status: Former smoker Tobacco type: cigarettes Smoking end date: 02/14/04 Alcohol intake: current Drinks per week: 2 Substance use: never Substance use type: does not use Living arrangements: with family Spiritual care concerns: No Meds Home Medications and Allergies Home Medications Medication Instructions Recorded Confirmed Type ferrous sulfate 325 mg (65 mg 325 mg PO DAILY 07/27/23 02/14/24 History iron) tablet (Iron (ferrous sulfate)) Allergies Allergy/AdvReac Type Severity Reaction Status Date / Time No Known Allergies Allergy Verified 02/14/24 12:34 Exam Const: General: healthy appearing and alert Orientation/consciousness: patient oriented x3 Resp: Effort & Inspection: normal respiratory effort : External Female Exam: normal external appearance Speculum Exam - Vagina: normal appearance of the vagina and normal vaginal discharge Speculum Exam - Cervix: normal appearance of the cervix Bimanual exam- vagina & uterus: uterine size normal and consistency normal Bimanual Exam- Adnexa, other: normal adnexae and No adnexal tenderness Neuro: General: patient oriented x3 Assessment and Plan Assessment and plan (1) Menorrhagia: Code(s): N92.0 - Excessive and frequent menstruation with regular cycle Status: Acute Assessment and Plan: plan to proceed with hysteroscopic myomectomy if needed followed by endometrial Clarissa ablation (2) Fibroids: Code(s): D21.9 - Benign neoplasm of connective and other soft tissue, unspecified Status: Acute
[2024-02-18 08:35] VITALS: BP 113/71; PULSE 75; RESP 14; TEMP 36.2; O2SAT 100
[2024-02-18 08:48] VITALS: BMI 24.3
[2024-02-18 08:50] LABS: BEDSIDEPREGUCG Negative (Negative)
[2024-02-18] MEDS: LACTATED RINGERS 1,000 ML 30 ML IV CONT (08:55)
[2024-02-18] MEDS: ACETAMINOPHEN 500 MG TABLET 1000 MG PO (09:02)
[2024-02-18] MEDS: LIDOCAINE HCL 1% LOCAL INJ 20 ML VIAL 10 ML INFILTRATE (10:36)
--- NOTE | 2024-02-18 11:00 | W.PM.PROC2 ---
Procedure Note - Detailed Date of Procedure 02/18/24 Pre-op Diagnosis Menorrhagia, Fibroid Post-op Diagnosis Same Procedure Performed Hysteroscopic myomectomy Clarissa endometrial ablation Surgeon Brielle Sanchez MD Anesthesia MAC and Local Findings uterus sounds to 10cm there is a large fibroid filling the entire cavity arising from the right upper fundus remainder of the endometrium appears grossly normal Description of Procedure The patient was taken to the operating room and placed under anesthesia in the dorsal lithotomy position. She was prepped and draped in usual sterile fashion. [place] speculum was placed in the vagina and the cervix grasped on the anterior lip with a tenaculum. The uterus sounded to 10cm. The cervix was serially dilated to a 6 Hegar. The diagnostic hysteroscope was placed and the fibroid is filling the entire cavity. The Wave Aveta resection device was opened and placed. Under direct visualization the fibroid is removed in its entirety. There was no bulging into the cavity at the resection site. The Clarissa ablation device is then opened and placed and set at 6cm. Cavity assessment passed on the 1st attempt and the treatment cycle lasted the full 2minutes. The hysteroscope was replaced but due to bleeding visualization was poor to obtain postoperative pictures. Visually the endometrium appears well ablated. All instruments are removed. The sponge, needle, and instrument counts are correct per the OR staff. The patient was awakened from anesthesia and taken to recovery in stable condition. Estimated Blood Loss 5 Drains No Packing No Pathology Yes ( Endometrial shavings and curettings) Complications No immediate complications Condition Stable Disposition PACU
[2024-02-18 11:05] VITALS: BP 105/53; PULSE 91; RESP 12; O2SAT 99
[2024-02-18 11:33] VITALS: BP 108/67; PULSE 79; RESP 16; O2SAT 98
[2024-02-18 12:00] VITALS: BP 105/65; PULSE 67; RESP 16
== END 2024-02-18 12:07 | disposition home or self-care (01) ==
PROVIDERS: PCP Family Medicine; Visit Provider Obstetrics & Gynecology Gynecology
PROC: 0U5B8ZZ Destruction of Endometrium, Via Natural or Artificial Opening Endoscopic (ICD-10-PCS; CPT 58563; principal; 2024-02-18 10:30)
DX: N92.0 Excessive and frequent menstruation with regular cycle (principal); D25.9 Leiomyoma of uterus, unspecified; Z87.891 Personal history of nicotine dependence
CPT/HCPCS: 58561; 58563; 88305; A9270; J1100; J2003; J2250; J2405; J2704; J3010; J7120

== ENCOUNTER 2024-03-24 09:18 | Emergency (ER) | payer BC, SELFPAY ==
--- NOTE | ~2024-03-24 | US_ITS ---
US pelvic complete Ordering provider: Crow Blancas III, DO History: . vaginal bleeding . Comparison: None. Technique: Transabdominal and endovaginal ultrasound of the pelvis (Doppler ultrasound interrogation techniques used as needed for this exam.) FINDINGS: CERVIX: Normal. UTERUS: Measures 11.1x 4.7x 6.3 cm in length which is within normal limits and is anteverted. Comple x area posteriorly measuring 1.9 x 1.3 x 1.8 cm. Suggestive of fibroid. ENDOMETRIUM: Normal in thickness measuring 4.4 mm. No endometrial masses, cysts or fluid. CUL DE SAC: No free fluid. RIGHT OVARY: Normal in size measuring 2.6x1.3 x 2 cm. Normal echotexture. Doppler vascular flow prese nt. LEFT OVARY: Normal in size measuring 2.1x 1.4x 2.6 cm. Normal echotexture. Doppler vascular flow pres ent. ADNEXA: Normal. No mass. IMPRESSION: Fibroid uterus. Otherwise, normal pelvic ultrasound. Reviewed, dictated and finalized at location A. AL NUTRITION CONSULTANT
[2024-03-24 09:48] VITALS: BP 133/76; PULSE 125; RESP 16; TEMP 36.4; O2SAT 100
[2024-03-24 10:43] LABS: Basophils Absolute Auto 0.1 K/mm3 (0.0-0.1); Eosinophils Percent Auto 0.6 % (0-4.4); Hematocrit 38.6 % (37.0-47.0); Hemoglobin 12.7 g/dL (12.0-15.0); Immature Granulocyte Absolute 0.02 K/mm3 (0.00-0.031); Immature Granulocyte Percent A 0.3 % (0-0.5); Lymphocytes Absolute Auto 1.76 K/mm3 (0.9-3.2); Lymphocytes Percent Auto 28.3 % (18.3-44.2); Mean Corpuscular HGB Conc 32.9 g/dl (32-36); Mean Corpuscular Hemoglobin 28.9 pg (26-34); Mean Corpuscular Volume 87.9 fl (80-100); Mean Platelet Volume 9.3 fl (7.4-10.4); Monocytes Absolute Auto 0.5 K/mm3 (0.1-0.6); Monocytes Percent Auto 7.6 % (2.6-8.5); Neutrophils Absolute Auto 3.9 K/mm3 (1.3-6.7); Neutrophils Percent Auto 62.2 % (45.5-73.1); Platelet Count Result 352 k/mm3 (150-375); Red Blood Count 4.39 M/mm3 (4.2-5.4); White Blood Count 6.2 K/mm3 (4.5-10.0)
[2024-03-24 10:53] LABS: Alanine Aminotransferase 31 U/L (6-35); Albumin Level 4.4 g/dL (3.5-5.1); Alkaline Phosphatase 58 U/L (38-126); Anion Gap 6 mmol/L (4-12); Aspartate Amino Transferase 33 U/L (14-36); Bilirubin,Total 0.6 mg/dL (0.2-1.3); Blood Urea Nitrogen 8 mg/dL (7-17); Calcium 9.3 mg/dL (8.4-10.2); Carbon Dioxide 25 mmol/L (22-30); Chloride 108 mmol/L (98-107); Estimated CRCL calculation 65 ml/min; Estimated Glomerular Filt Rate > 60; Glucose 91 mg/dL (65-110); Sodium 139 mmol/L (137-145)
--- NOTE | 2024-03-24 10:53 | ED.FEMALEGU ---
HPI - Female Genitourinary General Chief complaint: Vaginal Bleeding Stated complaint: vaginal bleeding sent by Dr. Sanchez Time Seen by Provider: 03/24/24 10:20 History of Present Illness HPI Narrative: Pt had recent uterine ablation procedure by Dr sanchez for vaginal bleeding. Pt started having vaginal bleeding again two days ago and has increased today. Pt has some back pain. Pt going through pad an hour. Related Data Home Medications ?Medication ?Instructions ?Recorded ?Confirmed ?Last Taken ?Type ferrous sulfate 325 mg (65 mg 325 mg PO DAILY 07/27/23 02/14/24 Unknown History iron) tablet (Iron (ferrous sulfate)) Allergies Allergy/AdvReac Type Severity Reaction Status Date / Time No Known Allergies Allergy Verified 03/24/24 09:18 Review of Systems Review of Systems: All systems reviewed & are unremarkable except as noted in HPI and below PMFSH Past Medical History Medical History (Updated 03/24/24 @ 11:54 by Crow Blancas III, DO) (normal spontaneous vaginal delivery) x2 Surgical History Surgical History (Updated 02/18/24 @ 07:52 by Brielle Sanchez MD) Status post hysteroscopic myomectomy 07/31 History of loop electrical excision procedure (LEEP) S/P anal fissurectomy Hx of tonsillectomy Family History Family History Grandparent Heart problem Mother Hypothyroid Social History Social History Years smoked: 7 Smoking status: Former smoker Tobacco type: cigarettes Smoking end date: 02/14/04 Alcohol intake: current Drinks per week: 2 Substance use: never Substance use type: does not use Living arrangements: with family Spiritual care concerns: No Exam Const: General: healthy appearing and no acute distress Nutritional Appearance: well nourished Orientation/consciousness: patient oriented x3 Limitations: no limitations Eyes: Conjunctivae: conjunctivae normal EOM: EOMs intact bilaterally Resp: Effort & Inspection: normal respiratory effort Auscultation: clear to auscultation bilaterally Cardio: Rate: regular rate Rhythm: regular rhythm GI: GI Palp: Yes Soft to palpation and No Tenderness to palpation present (GI) Auscultation: normal bowel sounds Neuro: General: patient oriented x3, moves all extremities and no focal motor deficits Cranial nerves: Yes Nystagmus not present Speech: normal speech Extrem: General: normal to inspection and no clubbing, cyanosis or edema Psych: Appearance: grossly normal and well kempt Mental Status: mental status grossly normal Affect: normal affect Attitude: cooperative Course Vital Signs Vital signs: Vital Signs Temperature 97.5 F L 03/24/24 09:48 Pulse Rate 125 H 03/24/24 09:48 Respiratory Rate 16 03/24/24 09:48 Blood Pressure 133/76 03/24/24 09:48 Pulse Oximetry 100 03/24/24 09:48 Temperature 97.5 F L 03/24/24 09:48 Pulse Rate 125 H 03/24/24 09:48 Respiratory Rate 16 03/24/24 09:48 Blood Pressure 133/76 03/24/24 09:48 Pulse Oximetry 100 03/24/24 09:48 MDM - Female Genitourinary MDM Narrative Medical decision making narrative: Pt presents with increased vaginal bleeding. Pt had ablation recently for same. will check labs and type and screen and get sono. labs look ok. sono shows fibroid but otherwise unremarkable. discussed with Dr Sanchez, recommended TXA and follow up. Lab Data 03/24/24 10:29 03/24/24 10:29 Labs: Lab Results 03/24/24 Range/Units 10:29 WBC 6.2 (4.5-10.0) K/mm3 RBC 4.39 (4.2-5.4) M/mm3 Hgb 12.7 (12.0-15.0) g/dL Hct 38.6 (37.0-47.0) % MCV 87.9 (80-100) fl MCH 28.9 (26-34) pg MCHC 32.9 (32-36) g/dl RDW 12.0 (11.5-14.5) % Plt Count 352 (150-375) k/mm3 MPV 9.3 (7.4-10.4) fl Immature Gran % (Auto) 0.3 (0-0.5) % Neut % (Auto) 62.2 (45.5-73.1) % Lymph % (Auto) 28.3 (18.3-44.2) % [place] % (Auto) 7.6 (2.6-8.5) % Eos % (Auto) 0.6 (0-4.4) % Baso % (Auto) 1.0 (0.2-1.2) % Lymph # (Auto) 1.76 (0.9-3.2) K/mm3 [place] # (Auto) 0.5 (0.1-0.6) K/mm3 Eos # (Auto) 0.0 (0-0.3) K/mm3 Baso # (Auto) 0.1 (0.0-0.1) K/mm3 Abs Immat Gran (auto) 0.02 (0.00-0.031) K/mm3 Absolute Neuts (auto) 3.9 (1.3-6.7) K/mm3 Absolute Nucleated RBC 0.000 (0.0-0.012) K/mm3 Nucleated RBC % 0.0 (0.0-0.2) % PT 13.5 (11.1-14.7) Seconds INR 1.0 APTT 28.6 (22.3-36.8) Seconds Sodium 139 (137-145) mmol/L Potassium 4.0 (3.4-5.0) mmol/L Chloride 108 H (98-107) mmol/L Carbon Dioxide 25 (22-30) mmol/L Anion Gap 6 (4-12) mmol/L BUN 8 D (7-17) mg/dL Creatinine 0.80 (0.7-1.0) mg/dL Estim Creat Clear Calc 65 ml/min Estimated GFR > 60 (59 - ) Glucose 91 (65-110) mg/dL Calcium 9.3 (8.4-10.2) mg/dL Total Bilirubin 0.6 (0.2-1.3) mg/dL AST 33 (14-36) U/L ALT 31 (6-35) U/L Alkaline Phosphatase 58 (38-126) U/L Total Protein 7.0 (6.3-8.2) g/dL Albumin 4.4 (3.5-5.1) g/dL Blood Type O Positive Antibody Screen Negative Discharge Plan Discharge Clinical Impression: Fibroids, Vaginal bleeding Patient Disposition: Home, Self-Care Condition: Stable Instructions: Antibiotic Form, Abnormal (Dysfunctional) Uterine Bleeding (ED) Patient Language: Hungarian Prescriptions: New tranexamic acid 650 mg tablet 1,300 mg PO TID 5 Days Qty: 30 0RF No Action ferrous sulfate [Iron (ferrous sulfate)] 325 mg (65 mg iron) Tablet 325 mg PO DAILY Follow-up/Referrals: Divya Carter MD [Primary Care Provider] - Brielle Sanchez MD [Physician] -
[2024-03-24 10:54] LABS: Prothrombin Time 13.5 Seconds (11.1-14.7)
[2024-03-24 10:55] LABS: Partial Thromboplastin Time 28.6 Seconds (22.3-36.8)
--- OUTSIDE RECORDS SUMMARY | 2024-03-31 03:58 | XMS_ITS | Clinical Summary ---
Author Organization [facility] Address [address] [place] [address] Care Team Providers Care Deputy Sheriff Generalist Name Role Phone Unavailable Primary Care Provider Unavailabl e Source Comments [facility],non-owned Affiliates and Associated Physician Practices is amultiple site organization consisting of ambulatory clinics and hospital sitesin [place], [place], [place] and [place]. This disclosure is being madepursuant to the Care Everywhere program and may not contain all information available regarding this patient. Last updated 17.[facility] Studio Encounters Date Type Department Care Team Description 02/13/2024 Lab Requisition [facility] [address] [place] [address] Brielle Sanchez MD Excessive and frequent menstruation with irregular cycle from Last 3 Months Social History Tobacco Use Types Packs/Day Years Used Date Smoking Tobacco: Never Assessed Sex and Gender Information Value Date Recorded Sex Assigned at Not on file Gender Identity Not on file Sexual Orientation Not on file Plan of Treatment Health Maintenance Due Date Last Done Comments COLOGUARD (AGES 45-75) - COL ON CA SCREENING 1975 COLON MONITORING 1975 COLONOSCOPY - COLON CA SCREENING 1975 CT COLONOGRAPHY - COLON CA SCREENING 1975 Colorectal Cancer Screening 1975 FIT - COLON CA SCREENING 1975 FLEX SIG - COLON CA SCREENING 1975 LIPID TESTING 1975 MAMMOGRAM 1975 PAP SMEAR 1975 HIV SCREENING 1990 HEPATITIS C SCREENING 04/13/1993 DTAP/TDAP/TD VACCINES (1 - Tdap) 1994 HEPATITIS B VACCINE (1 of 3 - 19+ 3-dose series) 1994 DEPRESSION SCREENING 04/09/2023 COVID-19 VACCINE (1 - 2023-2 5 season) 2023 INFLUENZA VACCINE (#1) 2023 ZOSTER VACCINE (1 of 2) 2025 HIB VACCINE Aged Out No longer eligi ble based on patient's age to complete this topic HPV VACCINE Aged Out No longer eligi ble based on patient's age to complete this topic MENINGOCOCCAL VACCINE Aged Out No ijeoma rakesh eligible based on patient's age to complete this topic PNEUMOCOCCAL VACCINE Aged Out No long er eligible based on patient's age to complete this topic Procedures Procedure Name Priority Date/Time Associated Diagnosis Comments CBC W AUTO DIFFERENTIAL STAT 02/13/2024 12:00 PM JAIL OFFICER Excessive and frequent menstruation with irregular cycle from Last 3 Months Results * CBC WITH DIFFERENTIAL (02/13/2024 12:00 PM JAIL OFFICER) WBC 8.1 4.0 - 10.7 x10E9/L 02/13/2024 12:07 PM JAIL OFFICER [facility] RBC Count 4.38 3.90 - 5.20 x10E12/L 02/13/2024 12:07 PM JAIL OFFICER [facility] Hemoglobin 12.5 11.9 - 15.8 g/dL 02/13/2024 12:07 PM [facility] Hematocrit 39.2 34.8 - 46.1 % 02/13/2024 12:07 PM [facility] MCV 89.5 80.0 - 98.0 fL 02/13/2024 12:07 PM [facility] MCH 28.5 26.7 - 33.6 pg 02/13/2024 12:07 PM [facility] MCHC 31.9 31.7 - 36.3 g/dL 02/13/2024 12:07 PM [facility] RDW-CV 12.8 11.3 - 14.8 % 02/13/2024 12:07 PM [facility] Platelet Count 359 150 - 420 x10E9/L 02/13/2024 12:07 PM JAIL OFFICER [facility] MPV 9.7 7.8 - 11.4 fL 02/13/2024 12:07 PM [facility] Neutrophil % 68.1 41.0 - 74.0 % 02/13/2024 12:07 PM [facility] Lymphocyte % 22.6 17.0 - 47.0 % 02/13/2024 12:07 PM [facility] Monocyte % 7.6 3.0 - 11.0 % 02/13/2024 12:07 PM JAIL OFFICER [facility] Eosinophil % 0.6 0.0 - 7.0 % 02/13/2024 12:07 PM JAIL OFFICER [facility] Basophil % 0.9 0.0 - 1.6 % 02/13/2024 12:07 PM JAIL OFFICER [facility] Immature Granulocytes % 0.2 0.0 - 1.0 % 02/13/2024 12:07 PM JAIL OFFICER [facility] Neutrophil Absolute 5.50 1.60 - 7.50 x10E9/L 02/13/2024 12:07 PM JAIL OFFICER [facility] Lymphocyte Absolute 1.82 1.00 - 4.40 x10E9/L 02/13/2024 12:07 PM JAIL OFFICER [facility] Monocyte Absolute 0.61 0.15 - 1.00 x10E9/L 02/13/2024 12:07 PM JAIL OFFICER [facility] Eosinophil Absolute 0.05 0.00 - 0.60 x10E9/L 02/13/2024 12:07 PM JAIL OFFICER [facility] Basophil Absolute 0.07 0.00 - 0.13 x10E9/L 02/13/2024 12:07 PM JAIL OFFICER [facility] Blood BLOOD SPECIMEN / Unknown 02/13/2024 12:00 PM JAIL OFFICER 02/13/2024 12:01 PM JAIL OFFICER Brielle Sanchez MD LAB - HEMATOLOGY ORDERABLES Performing Organization Address [facility]/State/[facility] Co de Phone Number [facility] [address] [place] [address] from Last 3 Months Jemima Platt Personal/Family Self 1975
--- OUTSIDE RECORDS SUMMARY | 2024-03-31 03:58 | XMS_ITS | Referral Summary ---
Author Organization [facility] Address [address] [place] [address] Care Team Providers Care Litigation Attorney Name Role Phone Unavailable Primary Care Provider Unavailabl e Source Comments [facility],non-owned Affiliates and Associated Physician Practices is amultiple site organization consisting of ambulatory clinics and hospital sitesin [place], [place], [place] and [place]. This disclosure is being madepursuant to the Care Everywhere program and may not contain all information available regarding this patient. Last updated 17.[facility] Encounters Date Type Department Care Team Description 02/13/2024 Lab Requisition [facility] [address] [place] [address] Brielle Sanchez MD Excessive and frequent menstruation with irregular cycle from Last 3 Months Social History Tobacco Use Types Packs/Day Years Used Date Smoking Tobacco: Never Assessed Sex and Gender Information Value Date Recorded Sex Assigned at Not on file Gender Identity Not on file Sexual Orientation Not on file Plan of Treatment Not on file Procedures Procedure Name Priority Date/Time Associated Diagnosis Comments CBC W AUTO DIFFERENTIAL STAT 02/13/2024 12:00 PM ASL INTERPRETER Excessive and frequent menstruation with irregular cycle from Last 3 Months Results * CBC WITH DIFFERENTIAL (02/13/2024 12:00 PM ASL INTERPRETER) WBC 8.1 4.0 - 10.7 x10E9/L 02/13/2024 12:07 PM ASL INTERPRETER [facility] RBC Count 4.38 3.90 - 5.20 x10E12/L 02/13/2024 12:07 PM ASL INTERPRETER [facility] Hemoglobin 12.5 11.9 - 15.8 g/dL 02/13/2024 12:07 PM ASL INTERPRETER [facility] Hematocrit 39.2 34.8 - 46.1 % 02/13/2024 12:07 PM ASL INTERPRETER [facility] MCV 89.5 80.0 - 98.0 fL 02/13/2024 12:07 PM [facility] MCH 28.5 26.7 - 33.6 pg 02/13/2024 12:07 PM [facility] MCHC 31.9 31.7 - 36.3 g/dL 02/13/2024 12:07 PM [facility] RDW-CV 12.8 11.3 - 14.8 % 02/13/2024 12:07 PM [facility] Platelet Count 359 150 - 420 x10E9/L 02/13/2024 12:07 PM [facility] MPV 9.7 7.8 - 11.4 fL 02/13/2024 12:07 PM [facility] Neutrophil % 68.1 41.0 - 74.0 % 02/13/2024 12:07 PM [facility] Lymphocyte % 22.6 17.0 - 47.0 % 02/13/2024 12:07 PM [facility] Monocyte % 7.6 3.0 - 11.0 % 02/13/2024 12:07 PM [facility] Eosinophil % 0.6 0.0 - 7.0 % 02/13/2024 12:07 PM [facility] Basophil % 0.9 0.0 - 1.6 % 02/13/2024 12:07 PM [facility] Immature Granulocytes % 0.2 0.0 - 1.0 % 02/13/2024 12:07 PM [facility] Neutrophil Absolute 5.50 1.60 - 7.50 x10E9/L 02/13/2024 12:07 PM [facility] Lymphocyte Absolute 1.82 1.00 - 4.40 x10E9/L 02/13/2024 12:07 PM [facility] Monocyte Absolute 0.61 0.15 - 1.00 x10E9/L 02/13/2024 12:07 PM [facility] Eosinophil Absolute 0.05 0.00 - 0.60 x10E9/L 02/13/2024 12:07 PM [facility] Basophil Absolute 0.07 0.00 - 0.13 x10E9/L 02/13/2024 12:07 PM [facility] Blood BLOOD SPECIMEN / Unknown 02/13/2024 12:00 PM ASL INTERPRETER 02/13/2024 12:01 PM ASL INTERPRETER Brielle Sanchez MD LAB - HEMATOLOGY ORDERABLES Performing Organization Address City/State/[facility] Co de Phone Number [facility] [address] [place] [address] from Last 3 Months Jemima Platt Personal/Family Self 1975
--- OUTSIDE RECORDS SUMMARY | 2024-03-31 03:58 | XMS_ITS | Encounter Summary ---
Author Organization [facility] Address [address] [place] [address] Care Team Providers Care Auto Body Shop Manager Name Role Phone Unavailable Primary Care Provider Unavailabl e Encounter Details Date Type Department Care Team (Late st Contact Info) Description 02/13/2024 Lab Requisition [facility] [address] [place] [address] Brielle Sanchez MD [address] [place] [address] Excessive and frequent menstruation with irregular cycle Social History Tobacco Use Types Packs/Day Years Used Date Smoking Tobacco: Never Assessed Sex and Gender Information Value Date Recorded Sex Assigned at Not on file Gender Identity Not on file Sexual Orientation Not on file documented as of this encounter Plan of Treatment Not on file documented as of this encounter Procedures Procedure Name Priority Date/Time Associated Diagnosis Comments CBC W AUTO DIFFERENTIAL STAT 02/13/2024 12:00 PM UNIFIED COMMUNICATIONS ARCHITECT Excessive and frequent menstruation with irregular cycle documented in this encounter Results * CBC WITH DIFFERENTIAL (02/13/2024 12:00 PM UNIFIED COMMUNICATIONS ARCHITECT) WBC 8.1 4.0 - 10.7 x10E9/L 02/13/2024 12:07 PM UNIFIED COMMUNICATIONS ARCHITECT [facility] RBC Count 4.38 3.90 - 5.20 x10E12/L 02/13/2024 12:07 PM UNIFIED COMMUNICATIONS ARCHITECT [facility] Hemoglobin 12.5 11.9 - 15.8 g/dL 02/13/2024 12:07 PM UNIFIED COMMUNICATIONS ARCHITECT [facility] Hematocrit 39.2 34.8 - 46.1 % 02/13/2024 12:07 PM UNIFIED COMMUNICATIONS ARCHITECT [facility] MCV 89.5 80.0 - 98.0 fL 02/13/2024 12:07 PM UNIFIED COMMUNICATIONS ARCHITECT [facility] MCH 28.5 26.7 - 33.6 pg 02/13/2024 12:07 PM UNIFIED COMMUNICATIONS ARCHITECT [facility] MCHC 31.9 31.7 - 36.3 g/dL 02/13/2024 12:07 PM [facility] RDW-CV 12.8 11.3 - 14.8 % 02/13/2024 12:07 PM [facility] Platelet Count 359 150 - 420 x10E9/L 02/13/2024 12:07 PM [facility] MPV 9.7 7.8 - 11.4 fL 02/13/2024 12:07 PM [facility] Neutrophil % 68.1 41.0 - 74.0 % 02/13/2024 12:07 PM [facility] Lymphocyte % 22.6 17.0 - 47.0 % 02/13/2024 12:07 PM [facility] Monocyte % 7.6 3.0 - 11.0 % 02/13/2024 12:07 PM [facility] Eosinophil % 0.6 0.0 - 7.0 % 02/13/2024 12:07 PM [facility] Basophil % 0.9 0.0 - 1.6 % 02/13/2024 12:07 PM [facility] Immature Granulocytes % 0.2 0.0 - 1.0 % 02/13/2024 12:07 PM [facility] Neutrophil Absolute 5.50 1.60 - 7.50 x10E9/L 02/13/2024 12:07 PM [facility] Lymphocyte Absolute 1.82 1.00 - 4.40 x10E9/L 02/13/2024 12:07 PM [facility] Monocyte Absolute 0.61 0.15 - 1.00 x10E9/L 02/13/2024 12:07 PM [facility] Eosinophil Absolute 0.05 0.00 - 0.60 x10E9/L 02/13/2024 12:07 PM [facility] Basophil Absolute 0.07 0.00 - 0.13 x10E9/L 02/13/2024 12:07 PM [facility] Blood BLOOD SPECIMEN / Unknown 02/13/2024 12:00 PM UNIFIED COMMUNICATIONS ARCHITECT 02/13/2024 12:01 PM [facility] Brielle Sanchez MD LAB - HEMATOLOGY ORDERABLES [facility] [address] [place] [address] documented in this encounter Visit Diagnoses Diagnosis Excessive and frequent menstruation with irregular cycle Excessive or frequent menstruation documented in this encounter
--- OUTSIDE RECORDS SUMMARY | 2024-03-31 03:58 | XMS_ITS | Continuity of Care Document ---
Author Organization [facility] Address [address] [place] [address] Phone Care Team Providers Care Med Peds Name Role Phone Jered Florentino MD Unavailable Unavailable Allergies, Adverse Reactions, Alerts Substance Reaction Status Criticality No Known Allergies Active No Inform ation Medications Medication Instructions Dosage Effective Dates (start - stop) Status Comments Vitamin D2 50,000 unit capsule take 1 capsule by oral route every week - Active Probiotic 10 billion cell capsule take 1 capsule by oral route every day 1 capsule - Active Advance Directives Directive Yes / No Effective Date File Name No Information Encounters Encounter Description Practice Location Reason(s) For Visit Diagnoses Date Provider Providers Copied on Encounter [address], [address], [place], [place], [address] , tel: [phone] [facility] No Information [address], [address], [place], [place], [address] , [place]. tel: [phone] [address], [address], [place], [place], [address] , tel: [phone] [facility] Body mass index (BMI) 24.0-24.9, adultRoutine check-up [address]. [address], [address], [place], [place], [address] , [place]. tel: [phone] Referring Provider: [address], [address], [place], [address] . tel:[phone], [address], [place], [place], [address] , [place] tel: [phone] [facility] Regular check-upEncounter for immunizationScreeni ng for lipoid disorders [address]. [facility] [address], [place], [place], [address] , . tel: [phone] Referring Provider: Jered Florentino [address], [address], [place], [address] . tel:[phone], [address], [place], [place], [address] , [place] tel: [phone] [facility] OTHER ATOPIC DERMATITISSCREEN-DI ABETES MELLITUSROUTINE MEDICAL EXAMSCREEN LIPOID DISORDERS [address]. [facility] [address], [place], [place], [address] , [place]. tel: [phone] [address], [address], [place], [place], [address] , [place] tel: [phone] [facility] ACUTE SINUSITIS NOS [address], [address], [place], [place], [address] , [place]. tel: [phone] [address], [address], [place], [place], [address] , [place] tel: [phone] [facility] HEADACHE [address], [place], [place], [address] , [place]. tel: [phone] [address], [address], [place], [place], [address] , [place] tel: [phone] [facility] ALLERGIC RHINITIS NOS [address], [place], [place], [address] , [place]. tel: [phone] [address], [address], [place], [place], [address] , [place] tel: [phone] [facility] LOCAL SUPRFICIAL SWELLNG [address], [address], [place], [place], [address] , . tel: [phone] [address], [address], [place], [place], [address] , tel: [phone] [facility] VIRAL INFECTION NOS [address] [facility] [address], [place], [place], [address] , . tel: [phone] [address], [address], [place], [place], [address] , tel: [phone] [facility] BENIGN NEOPLASM SKIN NOSHEMORRHOIDS NOS [address] [facility] [address], [place], [place], [address] , . tel: [phone] [address], [address], [place], [place], [address] , tel: [phone] [facility] DOG BITEASYMPT VARICOSE VEINS 0 [address] [facility] [address], [place], [place], [address] , . tel: [phone] Family History Family Member Type Diagnosis Age At Onset No Information Immunizations Vaccine Date Status Comments Fluzone Quad, split virus, 0.5mL dosage administered Source: New Immuniza tion Record Tdap administered Source: New Imm unization Record Payers Payer name Insurance type Covered alliance party ID Authoriza tion(s) [facility] CI [id number] [facility] CI [id number] Social History Type Description Quantity Date Captured Comments Alcohol Use Details Unknown Caffeine Use Details Unknown Tobacco Use Status No Information Smoking Status No Information Sex Female Sexual Orientation Choose not to disclose Gender Identity Female Chief Complaint And Reason For Visit No Information Reason For Referral Reason For Referral No Information History Of Present Illness Encounter Date Complaint History Of Prese nt Illness No Information Functional Status Date Functional Assessmen t No Information Instructions Date Instruction Additional Infor mation No Information Assessments Type Assessment Date No Information Patient Care Teams Name Effective Dates (start - stop) Status Members No Information
--- OUTSIDE RECORDS SUMMARY | 2024-03-31 03:58 | XMS_ITS | Patient Health Summary ---
Author Organization [facility] Address [address] [place] [address] Care Team Providers Care Chief Customer Officer Name Role Phone Unavailable Primary Care Provider Unavailabl e Note from [facility],non-owned Affiliates and Associated Physician Practices is amultiple site organization consisting of ambulatory clinics and hospital sitesin [place], [place], [place] and [place]. This disclosure is being madepursuant to the Care Everywhere program and may not contain all information available regarding this patient. Last updated 17.[facility] Social History Tobacco Use Types Packs/Day Years Used Date Smoking Tobacco: Never Assessed Sex and Gender Information Value Date Recorded Sex Assigned at Not on file Gender Identity Not on file Sexual Orientation Not on file Procedures * CBC W AUTO DIFFERENTIAL(Performed 02/13/2024) Performed for Excessive and frequent menstruation with irregular cycle Results * CBC WITH DIFFERENTIAL (02/13/2024 12:00 PM JUNIOR LINUX SYSTEMS ADMINISTRATOR) WBC 8.1 4.0 - 10.7 x10E9/L 02/13/2024 12:07 PM JUNIOR LINUX SYSTEMS ADMINISTRATOR [facility] RBC Count 4.38 3.90 - 5.20 x10E12/L 02/13/2024 12:07 PM JUNIOR LINUX SYSTEMS ADMINISTRATOR [facility] Hemoglobin 12.5 11.9 - 15.8 g/dL 02/13/2024 12:07 PM JUNIOR LINUX SYSTEMS ADMINISTRATOR [facility] Hematocrit 39.2 34.8 - 46.1 % 02/13/2024 12:07 PM JUNIOR LINUX SYSTEMS ADMINISTRATOR [facility] MCV 89.5 80.0 - 98.0 fL 02/13/2024 12:07 PM JUNIOR LINUX SYSTEMS ADMINISTRATOR [facility] MCH 28.5 26.7 - 33.6 pg 02/13/2024 12:07 PM JUNIOR LINUX SYSTEMS ADMINISTRATOR [facility] MCHC 31.9 31.7 - 36.3 g/dL 02/13/2024 12:07 PM JUNIOR LINUX SYSTEMS ADMINISTRATOR [facility] RDW-CV 12.8 11.3 - 14.8 % 02/13/2024 12:07 PM [facility] Platelet Count 359 150 - 420 x10E9/L 02/13/2024 12:07 PM [facility] MPV 9.7 7.8 - 11.4 fL 02/13/2024 12:07 PM [facility] Neutrophil % 68.1 41.0 - 74.0 % 02/13/2024 12:07 PM [facility] Lymphocyte % 22.6 17.0 - 47.0 % 02/13/2024 12:07 PM [facility] Monocyte % 7.6 3.0 - 11.0 % 02/13/2024 12:07 PM [facility] Eosinophil % 0.6 0.0 - 7.0 % 02/13/2024 12:07 PM [facility] Basophil % 0.9 0.0 - 1.6 % 02/13/2024 12:07 PM [facility] Immature Granulocytes % 0.2 0.0 - 1.0 % 02/13/2024 12:07 PM [facility] Neutrophil Absolute 5.50 1.60 - 7.50 x10E9/L 02/13/2024 12:07 PM [facility] Lymphocyte Absolute 1.82 1.00 - 4.40 x10E9/L 02/13/2024 12:07 PM [facility] Monocyte Absolute 0.61 0.15 - 1.00 x10E9/L 02/13/2024 12:07 PM [facility] Eosinophil Absolute 0.05 0.00 - 0.60 x10E9/L 02/13/2024 12:07 PM [facility] Basophil Absolute 0.07 0.00 - 0.13 x10E9/L 02/13/2024 12:07 PM [facility] Blood BLOOD SPECIMEN / Unknown 02/13/2024 12:00 PM JUNIOR LINUX SYSTEMS ADMINISTRATOR 02/13/2024 12:01 PM [facility] Brielle Sanchez MD LAB - HEMATOLOGY ORDERABLES [facility] [address] [place] [address]
--- OUTSIDE RECORDS SUMMARY | 2024-03-31 23:49 | XMS_ITS | Clinical Summary ---
Author Organization [facility] Address [address] [place] [address] Care Team Providers Care Kids Activities Coach Name Role Phone Unavailable Primary Care Provider Unavailabl e Source Comments [facility],non-owned Affiliates and Associated Physician Practices is amultiple site organization consisting of ambulatory clinics and hospital sitesin [place], [place], [place] and [place]. This disclosure is being madepursuant to the Care Everywhere program and may not contain all information available regarding this patient. Last updated 17.[facility] Seen Encounters Date Type Department Care Team Description 02/13/2024 Lab Requisition [facility] [address] [place] [address] Brielle Sanchez MD Excessive and frequent menstruation [...] W AUTO DIFFERENTIAL STAT 02/13/2024 12:00 PM MERCHANDISE DIRECTOR Excessive and frequent menstruation with irregular cycle from Last 3 Months Results * CBC WITH DIFFERENTIAL (02/13/2024 12:00 PM MERCHANDISE DIRECTOR) WBC 8.1 4.0 - 10.7 x10E9/L 02/13/2024 12:07 PM MERCHANDISE DIRECTOR [facility] RBC Count 4.38 3.90 - 5.20 x10E12/L 02/13/2024 12:07 PM MERCHANDISE DIRECTOR [facility] Hemoglobin 12.5 11.9 - 15.8 g/dL 02/13/2024 12:07 PM [facility] Hematocrit 39.2 34.8 - 46.1 % 02/13/2024 12:07 PM [facility] MCV 89.5 80.0 - 98.0 fL 02/13/2024 12:07 PM [facility] MCH 28.5 26.7 - 33.6 pg 02/13/2024 12:07 PM [facility] MCHC 31.9 31.7 - 36.3 g/dL 02/13/2024 12:07 PM [facility] RDW-CV 12.8 11.3 - 14.8 % 02/13/2024 12:07 PM [facility] Platelet Count 359 150 - 420 x10E9/L 02/13/2024 12:07 PM MERCHANDISE DIRECTOR [facility] MPV 9.7 7.8 - 11.4 fL 02/13/2024 12:07 PM [facility] Neutrophil % 68.1 41.0 - 74.0 % 02/13/2024 12:07 PM [facility] Lymphocyte % 22.6 17.0 - 47.0 % 02/13/2024 12:07 PM [facility] Monocyte % 7.6 3.0 - 11.0 % 02/13/2024 12:07 PM MERCHANDISE DIRECTOR [facility] Eosinophil % 0.6 0.0 - 7.0 % 02/13/2024 12:07 PM MERCHANDISE DIRECTOR [facility] Basophil % 0.9 0.0 - 1.6 % 02/13/2024 12:07 PM MERCHANDISE DIRECTOR [facility] Immature Granulocytes % 0.2 0.0 - 1.0 % 02/13/2024 12:07 PM MERCHANDISE DIRECTOR [facility] Neutrophil Absolute 5.50 1.60 - 7.50 x10E9/L 02/13/2024 12:07 PM MERCHANDISE DIRECTOR [facility] Lymphocyte Absolute 1.82 1.00 - 4.40 x10E9/L 02/13/2024 12:07 PM MERCHANDISE DIRECTOR [facility] Monocyte Absolute 0.61 0.15 - 1.00 x10E9/L 02/13/2024 12:07 PM MERCHANDISE DIRECTOR [facility] Eosinophil Absolute 0.05 0.00 - 0.60 x10E9/L 02/13/2024 12:07 PM MERCHANDISE DIRECTOR [facility] Basophil Absolute 0.07 0.00 - 0.13 x10E9/L 02/13/2024 12:07 PM MERCHANDISE DIRECTOR [facility] Blood BLOOD SPECIMEN / Unknown 02/13/2024 12:00 PM MERCHANDISE DIRECTOR 02/13/2024 12:01 PM MERCHANDISE DIRECTOR Brielle Sanchez MD LAB - HEMATOLOGY ORDERABLES Performing Organization Address [facility]/State/[facility] Co de Phone Number [facility] [address] [place] [address] from Last 3 Months Jemima Platt Personal/Family Self 1975
--- OUTSIDE RECORDS SUMMARY | 2024-03-31 23:50 | XMS_ITS | Continuity of Care Document ---
Author Organization [facility] Address [address] [place] [address] Phone Care Team Providers Care Radiagraph Operator Name Role Phone Jered Florentino MD Unavailable [...] Diagnoses Date Provider Providers Copied on Encounter [employer], [address], [place], [place], [address] , tel: [phone] [facility] No Information [address], [address], [place], [place], [address] , [place]. tel: [phone] [employer], [address], [place], [place], [address] , tel: [phone] [facility] Body mass index (BMI) 24.0-24.9, adultRoutine check-up [address], [address], [place], [place], [address] , [place]. tel: [phone] Referring Provider: [address], [address], [place], [address] . tel:[phone] [employer], [address], [place], [place], [address] , [place] tel: [phone] [facility] Regular check-upEncounter for immunizationScreeni ng for lipoid disorders [address] [facility] [address], [place], [place], [address] , . tel: [phone] Referring Provider: Jered Florentino [address], [address], [place], [address] . tel:[phone] [employer], [address], [place], [place], [address] , [place] tel: [phone] [facility] OTHER ATOPIC DERMATITISSCREEN-DI ABETES MELLITUSROUTINE MEDICAL EXAMSCREEN LIPOID DISORDERS [address] [facility] [address], [place], [place], [address] , [place]. tel: [phone] [employer], [address], [place], [place], [address] , [place] tel: [phone] [facility] ACUTE SINUSITIS NOS [address], [address], [place], [place], [address] , [place]. tel: [phone] [employer], [address], [place], [place], [address] , [place] tel: [phone] [facility] HEADACHE [address], [place], [place], [address] , [place]. tel: [phone] [employer], [address], [place], [place], [address] , [place] tel: [phone] [facility] ALLERGIC RHINITIS NOS [address], [place], [place], [address] , [place]. tel: [phone] [employer], [address], [place], [place], [address] , [place] tel: [phone] [facility] LOCAL SUPRFICIAL SWELLNG [address], [place], [place], [address] , . tel: [phone] [employer], [address], [place], [place], [address] , tel: [phone] [facility] VIRAL INFECTION NOS [address] [facility] [address], [place], [place], [address] , . tel: [phone] [employer], [address], [place], [place], [address] , tel: [phone] [facility] BENIGN NEOPLASM SKIN NOSHEMORRHOIDS NOS [address] [facility] [address], [place], [place], [address] , . tel: [phone] [employer], [address], [place], [place], [address] , tel: [phone] [facility] DOG BITEASYMPT VARICOSE VEINS [address] [facility] [address], [place], [place], [address] , . tel: [phone] Family History Family Member Type Diagnosis Age At Onset No Information Immunizations Vaccine Date Status Comments Fluzone Quad, split virus, 0.5mL dosage administered Source: New Immuniza tion Record Tdap administered Source: New Imm unization Record Payers Payer name Insurance type Covered libertarian ID Authoriza tion(s) [facility] CI [id number] [facility] CI [id number] Social History Type Description Quantity Date Captured [...]
--- OUTSIDE RECORDS SUMMARY | 2024-03-31 23:50 | XMS_ITS | Encounter Summary ---
Author Organization [facility] Address [address] [place] [address] Care Team Providers Care Career Center Director Name Role Phone Unavailable Primary Care Provider Unavailabl e Encounter Details Date Type Department Care Team (Late st Contact Info) Description 02/13/2024 Lab Requisition [facility] [address] [place] [address] Brielle Sanchez MD [address] [place] [address] Excessive and frequent menstruation with [...] W AUTO DIFFERENTIAL STAT 02/13/2024 12:00 PM SAP TRAINER Excessive and frequent menstruation with irregular cycle documented in this encounter Results * CBC WITH DIFFERENTIAL (02/13/2024 12:00 PM SAP TRAINER) WBC 8.1 4.0 - 10.7 x10E9/L 02/13/2024 12:07 PM SAP TRAINER [facility] RBC Count 4.38 3.90 - 5.20 x10E12/L 02/13/2024 12:07 PM SAP TRAINER [facility] Hemoglobin 12.5 11.9 - 15.8 g/dL 02/13/2024 12:07 PM SAP TRAINER [facility] Hematocrit 39.2 34.8 - 46.1 % 02/13/2024 12:07 PM SAP TRAINER [facility] MCV 89.5 80.0 - 98.0 fL 02/13/2024 12:07 PM SAP TRAINER [facility] MCH 28.5 26.7 - 33.6 pg 02/13/2024 12:07 PM SAP TRAINER [facility] MCHC 31.9 31.7 - 36.3 g/dL 02/13/2024 12:[address] [facility] RDW-CV 12.8 11.3 - 14.8 % 02/13/2024 12:[address] [facility] Platelet Count 359 150 - 420 x10E9/L 02/13/2024 12:[address] [facility] MPV 9.7 7.8 - 11.4 fL 02/13/2024 12:[address] [facility] Neutrophil % 68.1 41.0 - 74.0 % 02/13/2024 12:[address] [facility] Lymphocyte % 22.6 17.0 - 47.0 % 02/13/2024 12:[address] [facility] Monocyte % 7.6 3.0 - 11.0 % 02/13/2024 12:[address] [facility] Eosinophil % 0.6 0.0 - 7.0 % 02/13/2024 12:[address] [facility] Basophil % 0.9 0.0 - 1.6 % 02/13/2024 12:[address] [facility] Immature Granulocytes % 0.2 0.0 - 1.0 % 02/13/2024 12:[address] [facility] Neutrophil Absolute 5.50 1.60 - 7.50 x10E9/L 02/13/2024 12:[address] [facility] Lymphocyte Absolute 1.82 1.00 - 4.40 x10E9/L 02/13/2024 12:[address] [facility] Monocyte Absolute 0.61 0.15 - 1.00 x10E9/L 02/13/2024 12:[address] [facility] Eosinophil Absolute 0.05 0.00 - 0.60 x10E9/L 02/13/2024 12:[address] [facility] Basophil Absolute 0.07 0.00 - 0.13 x10E9/L 02/13/2024 12:[address] [facility] Blood BLOOD SPECIMEN / Unknown 02/13/2024 12:00 PM SAP TRAINER 02/13/2024 12:01 PM [facility] Brielle Sanchez MD LAB - HEMATOLOGY ORDERABLES [facility] [address] [place] [address] documented in this encounter Visit Diagnoses Diagnosis Excessive and frequent menstruation with irregular cycle Excessive or frequent menstruation documented in this encounter
--- OUTSIDE RECORDS SUMMARY | 2024-03-31 23:50 | XMS_ITS | Referral Summary ---
Author Organization [facility] Address [address] [place] [address] Care Team Providers Care Bill Adjuster Name Role Phone Unavailable Primary Care Provider Unavailabl e Source Comments [facility],non-owned Affiliates and Associated Physician Practices is amultiple site organization consisting of ambulatory clinics and hospital sitesin [place], [place], [place] and [place]. This disclosure is being madepursuant to the Care Everywhere program and may not contain all information available regarding this patient. Last updated 17.[facility] Encounters Date Type Department Care Team Description 02/13/2024 Lab Requisition [facility] [address] [place] [address] Brielle Sanchez MD Excessive and frequent menstruation [...] W AUTO DIFFERENTIAL STAT 02/13/2024 12:00 PM TOBACCO PACKER Excessive and frequent menstruation with irregular cycle from Last 3 Months Results * CBC WITH DIFFERENTIAL (02/13/2024 12:00 PM TOBACCO PACKER) WBC 8.1 4.0 - 10.7 x10E9/L 02/13/2024 12:07 PM TOBACCO PACKER [facility] RBC Count 4.38 3.90 - 5.20 x10E12/L 02/13/2024 12:07 PM TOBACCO PACKER [facility] Hemoglobin 12.5 11.9 - 15.8 g/dL 02/13/2024 12:07 PM TOBACCO PACKER [facility] Hematocrit 39.2 34.8 - 46.1 % 02/13/2024 12:07 PM TOBACCO PACKER [facility] MCV 89.5 80.0 - 98.0 fL 02/13/2024 12:[address] [facility] MCH 28.5 26.7 - 33.6 pg 02/13/2024 12:[address] [facility] MCHC 31.9 31.7 - 36.3 g/dL 02/13/2024 12:[address] [facility] RDW-CV 12.8 11.3 - 14.8 % 02/13/2024 12:[address] [facility] Platelet Count 359 150 - 420 x10E9/L 02/13/2024 12:[address] [facility] MPV 9.7 7.8 - 11.4 fL 02/13/2024 12:[address] [facility] Neutrophil % 68.1 41.0 - 74.0 % 02/13/2024 12:[address] [facility] Lymphocyte % 22.6 17.0 - 47.0 % 02/13/2024 12:[address] [facility] Monocyte % 7.6 3.0 - 11.0 % 02/13/2024 12:[address] [facility] Eosinophil % 0.6 0.0 - 7.0 % 02/13/2024 12:[address] [facility] Basophil % 0.9 0.0 - 1.6 % 02/13/2024 12:[address] [facility] Immature Granulocytes % 0.2 0.0 - 1.0 % 02/13/2024 12:[address] [facility] Neutrophil Absolute 5.50 1.60 - 7.50 x10E9/L 02/13/2024 12:[address] [facility] Lymphocyte Absolute 1.82 1.00 - 4.40 x10E9/L 02/13/2024 12:[address] [facility] Monocyte Absolute 0.61 0.15 - 1.00 x10E9/L 02/13/2024 12:[address] [facility] Eosinophil Absolute 0.05 0.00 - 0.60 x10E9/L 02/13/2024 12:[address] [facility] Basophil Absolute 0.07 0.00 - 0.13 x10E9/L 02/13/2024 12:[address] [facility] Blood BLOOD SPECIMEN / Unknown 02/13/2024 12:00 PM TOBACCO PACKER 02/13/2024 12:01 PM TOBACCO PACKER Brielle Sanchez MD LAB - HEMATOLOGY ORDERABLES Performing Organization Address City/State/[facility] Co de Phone Number [facility] [address] [place] [address] from Last 3 Months Jemima Platt Personal/Family Self 1975
--- OUTSIDE RECORDS SUMMARY | 2024-03-31 23:50 | XMS_ITS | Patient Health Summary ---
Author Organization [facility] Address [address] [place] [address] Care Team Providers Care Longwall Foreman Name Role Phone Unavailable Primary Care Provider Unavailabl e Note from [facility],non-owned Affiliates and Associated Physician Practices is amultiple site organization consisting of ambulatory clinics and hospital sitesin [place], [place], [place] and [place]. This disclosure is being madepursuant to the Care Everywhere program and may not contain all information available regarding this patient. Last updated 17.[facility] Social History Tobacco Use Types Packs/Day Years Used Date Smoking Tobacco: Never Assessed Sex and Gender Information Value Date Recorded Sex Assigned at Not on file Gender Identity Not on file Sexual Orientation Not on file Procedures * CBC W AUTO DIFFERENTIAL(Performed 02/13/2024) Performed for Excessive and frequent menstruation with irregular cycle Results * CBC WITH DIFFERENTIAL (02/13/2024 12:00 PM PROTOTYPE MACHINE OPERATOR) WBC 8.1 4.0 - 10.7 x10E9/L 02/13/2024 12:07 PM PROTOTYPE MACHINE OPERATOR [facility] RBC Count 4.38 3.90 - 5.20 x10E12/L 02/13/2024 12:07 PM PROTOTYPE MACHINE OPERATOR [facility] Hemoglobin 12.5 11.9 - 15.8 g/dL 02/13/2024 12:07 PM PROTOTYPE MACHINE OPERATOR [facility] Hematocrit 39.2 34.8 - 46.1 % 02/13/2024 12:07 PM PROTOTYPE MACHINE OPERATOR [facility] MCV 89.5 80.0 - 98.0 fL 02/13/2024 12:07 PM PROTOTYPE MACHINE OPERATOR [facility] MCH 28.5 26.7 - 33.6 pg 02/13/2024 12:07 PM PROTOTYPE MACHINE OPERATOR [facility] MCHC 31.9 31.7 - 36.3 g/dL 02/13/2024 12:07 PM PROTOTYPE MACHINE OPERATOR [facility] RDW-CV 12.8 11.3 - 14.8 % 02/13/2024 12:07 PM [facility] Platelet Count 359 150 - 420 x10E9/L 02/13/2024 12:07 PM [facility] MPV 9.7 7.8 - 11.4 fL 02/13/2024 12:07 PM [facility] Neutrophil % 68.1 41.0 - 74.0 % 02/13/2024 12:07 PM [facility] Lymphocyte % 22.6 17.0 - 47.0 % 02/13/2024 12:07 PM [facility] Monocyte % 7.6 3.0 - 11.0 % 02/13/2024 12:07 PM [facility] Eosinophil % 0.6 0.0 - 7.0 % 02/13/2024 12:07 PM [facility] Basophil % 0.9 0.0 - 1.6 % 02/13/2024 12:07 PM [facility] Immature Granulocytes % 0.2 0.0 - 1.0 % 02/13/2024 12:07 PM [facility] Neutrophil Absolute 5.50 1.60 - 7.50 x10E9/L 02/13/2024 12:07 PM [facility] Lymphocyte Absolute 1.82 1.00 - 4.40 x10E9/L 02/13/2024 12:07 PM [facility] Monocyte Absolute 0.61 0.15 - 1.00 x10E9/L 02/13/2024 12:07 PM [facility] Eosinophil Absolute 0.05 0.00 - 0.60 x10E9/L 02/13/2024 12:07 PM [facility] Basophil Absolute 0.07 0.00 - 0.13 x10E9/L 02/13/2024 12:07 PM [facility] Blood BLOOD SPECIMEN / Unknown 02/13/2024 12:00 PM PROTOTYPE MACHINE OPERATOR 02/13/2024 12:[address] PM [facility] Brielle Sanchez MD LAB - HEMATOLOGY ORDERABLES [facility] [address] [place] [address]
== END 2024-03-24 12:08 | disposition home or self-care (01) ==
PROVIDERS: Emergency Provider Emergency Medicine; PCP Family Medicine
DX: N93.9 Abnormal uterine and vaginal bleeding, unspecified (principal); D25.9 Leiomyoma of uterus, unspecified; Z87.891 Personal history of nicotine dependence
CPT/HCPCS: 36415; 76856; 80053; 85025; 85610; 85730; 86850; 86900; 86901; 99284